=== PATIENT | male | born 1940 | race Caucasian/White ===

== ENCOUNTER 2018-04-09 15:09 | Outpatient (CLI) | payer MEDICARE ==
--- NOTE | 2018-04-09 17:41 | RAD ---
THREE VIEWS LEFT HAND 04/09/18 COMPARISON: None. HISTORY: Bilateral hand pain for many years. FINDINGS: Three views of the left hand shows no evidence of acute fracture or dislocation. There is severe join t space narrowing and osteophyte formation involving the interphalangeal joints of the fingers consis tent with osteoarthritis. 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 POS: [facility]
--- NOTE | 2018-04-09 17:44 | RAD ---
THREE VIEWS OF THE RIGHT HAND: 04/09/18 COMPARISON: None. HISTORY: Bilateral hand pain for many years. FINDINGS: Three views of the right hand shows no evidence of acute fracture or dislocation. There is joint spac e narrowing and osteophyte formation surrounding the interphalangeal joints of the fingers. Surroundi ng soft tissue swelling is seen. IMPRESSION: Severe right hand osteoarthritis without acute osseous abnormality. POS: [facility]
== END 2018-04-09 15:10 | disposition home or self-care (01) ==
LOC: SCSRAD 15:09
PROVIDERS: ATTEND Family Medicine
DX: M79.641 Pain in right hand (principal); M79.642 Pain in left hand; M19.042 Primary osteoarthritis, left hand; M19.041 Primary osteoarthritis, right hand

== ENCOUNTER 2018-05-17 07:20 | Outpatient (CLI) | payer MEDICARE ==
--- NOTE | 2018-05-17 10:24 | CT ---
CT ARTHROGRAM OF THE RIGHT SHOULDER: INDICATION: History of right shoulder pain and concern for tear of the rotator cuff. FINDINGS: No full-thickness rotator cuff tear is evident. The biceps tendon is located. No definite full-thic kness labral tear is grossly evident. The visualized aspects of the inferior glenohumeral labral lig amentous complex appears within normal limits. The glenohumeral articular surface appears preserved. No abnormal contrast is seen within the subacromial subdeltoid bursa. There is mild AC joint osteo arthrosis. No muscular atrophy is evident. No enlarged lymph nodes are present. No destructive oss eous lesion is seen involving the proximal humerus or scapula. The visualized right lung demonstrate s interstitial fibrotic change of the right upper lobe with some paraseptal emphysema seen within the right upper lobe. IMPRESSION: 1. No evidence of full-thickness rotator cuff tear. 2. Mild acromioclavicular joint osteoarthrosis. 3. No aggressive destructive lytic lesion seen involving the right shoulder girdle. 4. Emphysematous change of the right lung. POS: [facility]
--- NOTE | 2018-05-17 11:06 | RAD ---
RIGHT SHOULDER ARTHROGRAM: Date: 05-17-18 Comparison: None. History: Evaluate rotator cuff tear, shoulder pain. FINDINGS: Informed consent was obtained prior to the procedure. Pre procedural three view football scout radiographs demonstrate old lateral right sided rib fractures. There is mild degenerative change of the right acromioclavicular joint with no acute fracture or dislocatio n seen. Skin overlying the right shoulder joint was prepped and draped in normal sterile fashion and anesthet ized with 1% buffered Lidocaine. With intermittent fluoroscopic guidance, a 22 gauge spinal needle was advanced into the right shoulde r joint an intraarticular location is confirmed with injection of small volume Lidocaine. Subsequentl y, 9-10 cc of a mixture containing iodinated contrast media was injected into the right shoulder join t. Needle was removed. Patient tolerated the procedure well. IMPRESSION: Successful right shoulder arthrogram as detailed above. POS: [facility]
== END 2018-05-17 07:21 | disposition home or self-care (01) ==
LOC: RAD 07:20
PROVIDERS: ATTEND Orthopaedic Surgery Hand Surgery
DX: M75.101 Unspecified rotator cuff tear or rupture of right shoulder, not specified as traumatic (principal); M89.9 Disorder of bone, unspecified; M19.011 Primary osteoarthritis, right shoulder
CPT/HCPCS: 23350

== ENCOUNTER 2018-06-06 13:27 | Emergency (ER) | payer MEDICARE ==
[2018-06-06 14:13] LABS: #Basophils 0.1 thou/uL (0.0-0.2); #Eosinphils 0.3 thou/uL (0.0-0.7); #Lymphocytes 1.9 thou/uL (1.20-3.40); #Monocytes 0.7 thou/uL (0.11-0.59); #Neutrophils 4.2 thou/uL (1.40-6.50); %Basophils 1.2 % (0.0-1.0); %Eosinophils 4.3 % (0.0-10.0); %Lymphocytes 26.1 % (21.0-51.0); %Monocytes 9.7 % (0.0-10.0); %Neutrophils 58.7 % (42.0-75.0); Hemoglobin 14.3 g/dL (14.0-18.0); Mean Corpuscular HGB CONC 33.3 g/dL (32.0-36.0); Mean Corpuscular Hemoglobin 29.6 pg (27.0-31.0); Mean Corpuscular Volume 88.8 fL (78.0-98.0); Mean Platelet Volume 6.9 fL (7.4-10.4); Platelet Count 138 thou/uL (130-400); RBC Distribution Width 11.8 % (11.5-14.5); Red Blood Cell (RBC) Count 4.83 mill/uL (4.70-6.10); White Blood Cell (WBC) Count 7.2 thou/uL (4.8-10.8)
[2018-06-06 14:30] LABS: ALT (SGPT) 17 U/L (8-55); AST (SGOT) 17 U/L (5-34); Albumin 3.7 g/dL (3.4-4.8); Alkaline Phosphatase 95 U/L (40-150); Anion Gap 13 mmol/L (10-20); BUN (Urea Nitrogen) 14 mg/dL (8.4-25.7); Bilirubin, Total 0.5 mg/dL (0.2-1.2); Calc. Creatinine Clearance 0 mL/min (70-130); Calcium 8.9 mg/dL (7.8-10.44); Carbon Dioxide 23 mmol/L (23-31); Chloride 108 mmol/L (98-107); Estimated GFR-MDRD 84; Globulin 2.8 g/dL (2.4-3.5); Glucose 97 mg/dL (83-110); Potassium 4.2 mmol/L (3.5-5.1); Protein, Total 6.5 g/dL (5.8-8.1); Sodium 140 mmol/L (136-145)
--- NOTE | 2018-06-06 14:35 | RAD ---
PA AND LATERAL VIEWS CHEST: Date: 06/06/18 HISTORY: Cough. FINDINGS: The heart size is normal. The lungs are expanded without lobar consolidation, pneumothoraces, or pleu ral effusions. There are degenerative changes in the spine. IMPRESSION: No radiographic evidence of acute cardiopulmonary process. POS: [facility]
== END 2018-06-06 14:51 | disposition home or self-care (01) ==
LOC: SCSER 13:27
DX: J06.9 Acute upper respiratory infection, unspecified (principal); M19.90 Unspecified osteoarthritis, unspecified site; Z87.891 Personal history of nicotine dependence; Z79.899 Other long term (current) drug therapy
CPT/HCPCS: 36415; 71046; 80053; 85025; 87804

== ENCOUNTER 2020-02-27 17:14 | Observation (INO) | payer MEDICARE, OTHER ==
[2020-02-27 17:48] LABS: #Eosinphils 0.7 thou/uL (0.0-0.7); #Lymphocytes 1.2 thou/uL (1.20-3.40); #Monocytes 0.7 thou/uL (0.11-0.59); #Neutrophils 4.2 thou/uL (1.40-6.50); %Basophils 0.4 % (0.0-1.0); %Eosinophils 10.5 % (0.0-10.0); %Monocytes 9.7 % (0.0-10.0); %Neutrophils 62.4 % (42.0-75.0); Hemoglobin 14.9 g/dL (14.0-18.0); Mean Corpuscular HGB CONC 34.5 g/dL (32.0-36.0); Mean Corpuscular Hemoglobin 31.3 pg (27.0-31.0); Mean Corpuscular Volume 90.7 fL (78.0-98.0); Mean Platelet Volume 9.2 fL (7.4-10.4); Platelet Count 149 thou/uL (130-400); RBC Distribution Width 15.3 % (11.5-14.5); Red Blood Cell (RBC) Count 4.75 mill/uL (4.70-6.10); White Blood Cell (WBC) Count 6.8 thou/uL (4.8-10.8)
[2020-02-27 17:57] LABS: Prothrombin Time 13.4 sec (12.0-14.7)
[2020-02-27 17:58] LABS: PTT 32.5 sec (22.9-36.1)
[2020-02-27 17:59] LABS: D-Dimer Test 2.27 *mcg/mL (0.27-0.43)
--- NOTE | 2020-02-27 18:04 | RAD ---
Portable frontal chest radiograph: 02/27/2020 COMPARISON: 06/22/2015 HISTORY: Weakness, shortness of breath FINDINGS: Heart and mediastinal contours are stable. No pneumothorax or pleural fluid. No focal conso lidation or alveolar edema. Mild increased linear interstitial density noted. IMPRESSION: No acute findings.
[2020-02-27 18:05] LABS: ALT (SGPT) 25 U/L (8-55); AST (SGOT) 16 U/L (5-34); Albumin 3.9 g/dL (3.4-4.8); Alkaline Phosphatase 106 U/L (40-110); Anion Gap 14 mmol/L (10-20); BUN (Urea Nitrogen) 12 mg/dL (8.4-25.7); Bilirubin, Total 0.8 mg/dL (0.2-1.2); CK (CPK) 42 U/L (30-200); Calc. Creatinine Clearance 0 mL/min (70-130); Calcium 9.2 mg/dL (7.8-10.44); Carbon Dioxide 23 mmol/L (23-31); Chloride 104 mmol/L (98-107); Estimated GFR-MDRD 58; Globulin 2.9 g/dL (2.4-3.5); Glucose 134 mg/dL (83-110); Lipase 32 U/L (8-78); Magnesium 2.2 mg/dL (1.6-2.6); Potassium 4.2 mmol/L (3.5-5.1); Protein, Total 6.8 g/dL (5.8-8.1); Sodium 137 mmol/L (136-145)
[2020-02-27 19:16] LABS: SARS-CoV-2 NAA Rapid Test Not Detected (NotDetected)
--- NOTE | 2020-02-27 20:01 | CT ---
CT PULMONARY ANGIOGRAM WITH IV CONTRAST AND 3D POSTPROCESSING: Date: 02/27/2020 HISTORY: 79-year-old male who is under treatment for Hodgkin's lymphoma. Is on cycle 3 of 6 of the CHOP plus a ntibody therapy. Patient complains of progressively worsening shortness of breath. FINDINGS: There is good contrast opacification of the pulmonary arterial vasculature without filling defects to suggest pulmonary embolism. The thoracic aorta is well opacified without aneurysm or dissection. Vas cular calcifications are present. A tiny pericardial effusion is noted. No pneumothoraces, lobar cons olidation, or pleural effusions are identified. There are patchy reticulonodular infiltrates in the l bong graham bilaterally. There are degenerative changes in the spine. Upper abdominal tomograms demons trate a small hiatal hernia. IMPRESSION: No CT evidence of pulmonary embolism. POS: [facility]
[2020-02-27] MEDS ORDERED: cefTRIAXone\\ROCEPHIN 2 GM VIAL ONE (20:16)
[2020-02-27] MEDS ORDERED: Azithromycin 500 MG VIAL ONE (20:16)
[2020-02-27 20:40] LABS: Lactic Acid 1.3 mmol/L (0.5-2.2)
[2020-02-27] MEDS ORDERED: Acetaminophen 500 MG TAB ONE (21:19)
[2020-02-27 22:19] LABS: Troponin I 0.015 ng/mL (< 0.028)
[2020-02-27 23:08] VITALS: BMI 23.3
[2020-02-28 00:03] LABS: Bacteria/HPF None Seen HPF (None Seen); Bilirubin Negative (Negative); Blood, Urine Negative (Negative); Clarity Clear (Clear); Glucose, Urine (Dipstick) 30 mg/dL (Negative); Ketone, Urine Negative (Negative); Leukocyte Negative Leu/uL (Negative); Nitrite Negative (Negative); Protein, Urine (Dipstick) 30 mg/dL (Neg-Trace); RBC/HPF 0-3 HPF (0-3); Squamous Epithelial 0-3 HPF (0-3); Urobilinogen Normal mg/dL (Less than 2); WBC/HPF 0-3 HPF (0-3); pH, Urine 5.5 (5.0-9.0)
[2020-02-28 00:06] LABS: Specific Gravity, Urine Greater than 1.060 (1.002-1.036)
[2020-02-28 01:13] LABS: Troponin I Less than 0.010 ng/mL (< 0.028)
[2020-02-28] MEDS: Sodium Chloride 0.9% 1,000 ML IV SCH ×2 (02:44→16:43)
[2020-02-28 05:02] LABS: Anion Gap 12 mmol/L (10-20); BUN (Urea Nitrogen) 12 mg/dL (8.4-25.7); Calc. Creatinine Clearance 66 mL/min (70-130); Calcium 8.2 mg/dL (7.8-10.44); Carbon Dioxide 19 mmol/L (23-31); Chloride 110 mmol/L (98-107); Estimated GFR-MDRD 69; Glucose 103 mg/dL (83-110); Magnesium 2.1 mg/dL (1.6-2.6); Potassium 3.9 mmol/L (3.5-5.1); Sodium 137 mmol/L (136-145)
--- NOTE | 2020-02-28 06:36 | HP ---
REASON FOR ADMISSION: Shortness of breath. HISTORY OF PRESENT ILLNESS: This is an 79-year-old male patient who is known to have non-Hodgkin lymphoma receiving chemotherapy consistent of CHOP regimen and Revlimid. Also he did receive radiation therapy in the past. He follows with Oncology at [facility] in [place]. He presents to our emergency room complaining of dizziness, decreased appetite, diarrhea, cramping of the upper extremities and lower extremities. These symptoms started couple of weeks ago. Also, he did add that he has been short of breath on exertion, his shortness of breath is relieved with rest. He denies orthopnea. He does report a dry cough. He denies any chest pain. In the emergency room, a CAT scan of the chest was done that showed patchy infiltrates bilaterally, but no PE. ER physician did contact the oncologist in [facility], decision was to admit him for further workup. Currently, the patient is on telemetry, appears to be very comfortable, in no acute distress. PAST MEDICAL HISTORY: Non-Hodgkin lymphoma with involvement of the GI tract, also lungs. ALLERGIES: NO NOTE OF ANY DRUG ALLERGY. SOCIAL HISTORY: He quit smoking a while back. He drinks alcohol occasionally. FAMILY HISTORY: Reviewed found to be noncontributory. REVIEW OF SYSTEMS: All systems reviewed except the above mentioned, found to be negative. PHYSICAL EXAMINATION: GENERAL: Awake, alert, oriented, does not appear in distress. VITAL SIGNS: His blood pressure is 106/58, his heart rate is 100 and saturating 96% on room air, respiratory rate 22, temperature is 97.6. HEAD: Nontraumatic, normocephalic. Pupils equal, reactive. Extraocular movements are intact. Nonicteric sclerae. Well injected conjunctivae. Oral mucosa normal. Nasal mucosa normal. NECK: Supple. No adenopathy. No murmur. Thyroid is not palpable. Trachea is midline. No supraclavicular adenopathy S1, S2 regular. No murmur. No gallops. No friction rubs. No displacement of PMI. LUNGS: Clear to auscultation bilaterally. No wheezes, rhonchi, or crackles. ABDOMEN: Bowel sounds are positive. Nontender abdomen. No hepatosplenomegaly. No lower extremity edema. No cyanosis noted. NEUROLOGIC: Cranial nerves 2 through 12 within normal limits. Normal motor function. Normal sensory function. Normal reflexes. LABORATORY DATA: Blood work shows WBC of 6.8, hemoglobin 14.9, platelets of 149. INR 1, PTT 32.5. Sodium of 137, potassium 4.2, bicarb of 23, BUN of 12, creatinine 1.21, lactic acid of 2.3, recheck 1.3. Troponin initially 0.01. Repeat 0.015. COVID-19 negative. IMAGING: EKG shows normal sinus rhythm. changes. Prolonged QTc per my read. ASSESSMENT AND PLAN: This is an 79-year-old male patient who is presenting with shortness of breath. He is known to have non-Hodgkin lymphoma, has been on chemotherapy, also Revlimid, also radiation therapy. Cardiac: The patient will be admitted to telemetry. We will do an echocardiogram. Serial troponins and monitor his rhythm. We will check a magnesium level. Correct if needed. The patient did report diarrhea and decreased appetite. This could be side effect of Revlimid. We will stop his Revlimid. We will have him on IV fluids. Pulmonary: The patient does have shortness of breath. The etiology remains unclear. On CT scan, he does have some patchy infiltrates. We will have him on IV antibiotics for possible pneumonia. For DVT prophylaxis, Lovenox. I did discuss with him his code status, he wishes to be a full code. Job ID: [id number]
[2020-02-28] MEDS ORDERED: Azithromycin 200 MG/5 ML Oral Suspension PO SCH (08:00)
[2020-02-28] MEDS ORDERED: Aspirin 325 mg Enteric Coated Tablet PO SCH (09:00)
[2020-02-28] MEDS ORDERED: Enoxaparin Sodium 40 MG/0.4 ML SYRINGE SC SCH (09:00)
[2020-02-28 16:41] VITALS: BP 119/59; TEMP 98.7
[2020-02-28] MEDS ORDERED: cefTRIAXone\\ROCEPHIN 1 GM in Sodium Chloride 0.9% 100 ML IVPB SCH (20:00)
--- NOTE | 2020-02-28 23:32 | DIS ---
DATE OF ADMISSION: 02/27/2020 DATE OF DISCHARGE: 02/28/2020 DIAGNOSIS: Pneumonia Mr. Trinidad is an 79 yo male pmh of Non-Hodgkin lymphoma, s/p chemotherapy with CHOP and currently on Revlimid who was admitted due to a 1-week history of progressive shortness of breath. CT obtained in the emergency department showed patchy infiltrates bilaterally. There were some concerns the patient had regarding side effects of Revlimid could be the cause of his presentation. The patient was admitted and received an echo, which showed normal ejection fraction with some mild diastolic dysfunction. I spoke to Dr. García, destination coordinator/oncologist at [facility] who follows Mr. Trinidad's, and he did not believe presentation to be side effect and recommended outpatient treatment for pneumonia. He will have his office staff reach out to patient within the week to have the patient follow up in clinic for further evaluation of side effects of medications. PHYSICAL: General: patient resting comfortably in bed, on room air Cardio: regular rate and rhythm, no murmur. Chest: clear to auscultation bilaterally. Abdomen: soft, nondistended, and nontender. Extremities: no edema of the bilateral lower extremities. He was discharged home in stable condition. F/u with destination coordinator/oncologist within the week and PCP within the week. Activity as tolerated. Heart-healthy diet. The patient was discharged with levofloxacin 500 mg, take 1 tablet by mouth daily for 5 days to treat pneumonia. All other home medications were continued. Return precautions were given. The total discharge time took greater than 30 minutes for the patient. Job ID: [id number] [facility]
--- NOTE | 2020-03-03 12:21 | EKG ---
Test Reason : WEAKNESS Blood Pressure : / mmHG Vent. Rate : 089 BPM Atrial Rate : 089 BPM P-R Int : 170 ms QRS Dur : 080 ms QT Int : 400 ms P-R-T Axes : 044 -24 051 degrees QTc Int : 486 ms Sinus rhythm with Premature atrial complexes Prolonged QT Abnormal ECG Confirmed by SOTERO BAY ([id number]), material expeditor JT MEYER ([id number]) on 03/03/2020 12:21:25 PM Referred By: Confirmed By:SOTERO BAY
== END 2020-02-28 17:30 | disposition home or self-care (01) ==
LOC: ERS 17:14 → 2NO 21:13 → INTOOBSV 21:13
PROVIDERS: ADMIT Internal Medicine; ATTEND Internal Medicine
DX: J18.9 Pneumonia, unspecified organism (principal); R25.2 Cramp and spasm; C85.93 Non-Hodgkin lymphoma, unspecified, intra-abdominal lymph nodes; C85.99 Non-Hodgkin lymphoma, unspecified, extranodal and solid organ sites; M19.90 Unspecified osteoarthritis, unspecified site; R63.0 Anorexia; Z68.23 Body mass index [BMI] 23.0-23.9, adult; Z87.891 Personal history of nicotine dependence; Z79.899 Other long term (current) drug therapy; Z20.828 Contact with and (suspected) exposure to other viral communicable diseases
CPT/HCPCS: 71045; 71275; 80048; 82550; 83605; 83690; 83735 ×2; 83880; 84484 ×3; 85379; 85610; 85730; 87040; 87804 ×2; 93005; 93306; 96361; 96365; 96367; 96372; 99285; G0378; U0002; 36415; 80053; 81003; 81015; 84443; 85025; J0456; J0696; J1650

== ENCOUNTER 2020-11-14 21:23 | Inpatient (IN) | payer MEDICARE ==
[~2020-11-14 21:23] MED LIST: Iopamidol-370 76% 500 ML 1 ML ONE
[2020-11-14 21:51] LABS: #Lymphocytes 2.2 thou/uL (1.20-3.40); #Monocytes 0.8 thou/uL (0.11-0.59); #Neutrophils 4.6 thou/uL (1.40-6.50); %Basophils 0.2 % (0.0-1.0); %Lymphocytes 28.8 % (21.0-51.0); %Monocytes 10.7 % (0.0-10.0); %Neutrophils 60.2 % (42.0-75.0); Hemoglobin 16.9 g/dL (14.0-18.0); Mean Corpuscular HGB CONC 33.8 g/dL (32.0-36.0); Mean Corpuscular Hemoglobin 30.6 pg (27.0-31.0); Mean Corpuscular Volume 90.4 fL (78.0-98.0); Mean Platelet Volume 8.2 fL (7.4-10.4); Platelet Count 138 thou/uL (130-400); RBC Distribution Width 12.8 % (11.5-14.5); Red Blood Cell (RBC) Count 5.52 mill/uL (4.70-6.10); White Blood Cell (WBC) Count 7.7 thou/uL (4.8-10.8)
[2020-11-14] MEDS ORDERED: cefTRIAXone\\ROCEPHIN 2 GM VIAL ONE (21:57)
[2020-11-14 22:16] LABS: ALT (SGPT) 37 U/L (8-55); AST (SGOT) 44 U/L (5-34); Albumin 4.1 g/dL (3.4-4.8); Alkaline Phosphatase 88 U/L (40-110); Anion Gap 17 mmol/L (10-20); BUN (Urea Nitrogen) 22 mg/dL (8.4-25.7); Bilirubin, Total 0.7 mg/dL (0.2-1.2); Calc. Creatinine Clearance 0 mL/min (70-130); Carbon Dioxide 23 mmol/L (23-31); Chloride 101 mmol/L (98-107); Globulin 3.1 g/dL (2.4-3.5); Glucose 117 mg/dL (83-110); Potassium 3.7 mmol/L (3.5-5.1); Protein, Total 7.2 g/dL (5.8-8.1); Sodium 137 mmol/L (136-145)
[2020-11-14 22:30] LABS: CK (CPK) 233 U/L (30-200); Lipase 57 U/L (8-78)
[2020-11-14 22:38] LABS: CKMB 3.2 ng/mL (0-6.6)
[2020-11-14] MEDS ORDERED: Azithromycin 500 MG VIAL ONE (22:41)
[2020-11-14 22:44] LABS: SARS-CoV-2 NAA Rapid Test DETECTED (NotDetected)
[2020-11-14] MEDS ORDERED: Ibuprofen 800 MG TAB ONE (23:09)
[2020-11-14] MEDS ORDERED: Acetaminophen 500 MG TAB ONE (23:09)
[2020-11-15] MEDS ORDERED: Enoxaparin Sodium 80 MG/0.8 ML SYRINGE ONE (00:15)
[2020-11-15] MEDS ORDERED: Aspirin Chewable 81 MG TAB ONE (00:15)
[2020-11-15 01:26] LABS: Lactic Acid 1.5 mmol/L (0.5-2.2)
[2020-11-15 01:41] LABS: Troponin I 0.023 ng/mL (< 0.028)
[2020-11-15] MEDS ORDERED: methylPREDNISolone Sod Succ/PF 125 MG in Sodium Chloride 0.9% 250 ML 250 ML IVPB SCH (02:15)
[2020-11-15] MEDS ORDERED: Sodium Chloride 0.9% 1,000 ML IV SCH ×2 (02:15→08:45)
[2020-11-15] MEDS ORDERED: Colchicine 0.6 MG TAB PO SCH (09:00)
[2020-11-15] MEDS ORDERED: REMDESIVIR 200 MG in Sodium Chloride 0.9% 250 ML 210 ML IV SCH (09:15)
[2020-11-15] MEDS ORDERED: guaiFENesin/Codeine 200 mg/20 mg 10 ml Cup PO PRN (09:40)
[2020-11-15] MEDS: Azithromycin 500 MG in Sodium Chloride 0.9% 250 ML 250 ML IVPB SCH (10:51)
[2020-11-15] MEDS: Ondansetron PF 4 MG/2 ML Vial IVP PRN (18:26)
[2020-11-15] MEDS ORDERED: Furosemide 20 MG/2 ML VIAL SLOW IVP SCH (20:45)
[2020-11-15] MEDS: Enoxaparin Sodium 80 MG/0.8 ML SYRINGE SC SCH (20:45)
[2020-11-16 04:53] LABS: Hemoglobin 14.6 g/dL (14.0-18.0); Mean Corpuscular HGB CONC 32.6 g/dL (32.0-36.0); Mean Corpuscular Hemoglobin 29.8 pg (27.0-31.0); Mean Corpuscular Volume 91.5 fL (78.0-98.0); Mean Platelet Volume 8.4 fL (7.4-10.4); Platelet Count 121 thou/uL (130-400); RBC Distribution Width 12.9 % (11.5-14.5); Red Blood Cell (RBC) Count 4.92 mill/uL (4.70-6.10); White Blood Cell (WBC) Count 6.1 thou/uL (4.8-10.8)
[2020-11-16 05:18] LABS: Anion Gap 12 mmol/L (10-20); BUN (Urea Nitrogen) 22 mg/dL (8.4-25.7); CK (CPK) 171 U/L (30-200); CRP (Inflammatory) 4.57 mg/dL (= or < 0.5); Calc. Creatinine Clearance 64 mL/min (70-130); Calcium 8.1 mg/dL (7.8-10.44); Carbon Dioxide 24 mmol/L (23-31); Chloride 110 mmol/L (98-107); Glucose 133 mg/dL (83-110); Potassium 3.5 mmol/L (3.5-5.1); Sodium 142 mmol/L (136-145)
[2020-11-16 06:13] LABS: Band 10 % (5-11); Lymphocytes 17 % (21-51); MDiff Complete? YES; Monocytes 8 % (0-10); Neutrophil 65 % (42-75)
[2020-11-16] MEDS: Enoxaparin Sodium 80 MG/0.8 ML SYRINGE SC SCH (08:02)
[2020-11-16] MEDS ORDERED: Dexamethasone 6 MG in Sodium Chloride 0.9% 50 ML IVPB SCH (09:00)
[2020-11-16] MEDS: Ondansetron PF 4 MG/2 ML Vial IVP PRN (09:22)
[2020-11-16] MEDS: Azithromycin 500 MG in Sodium Chloride 0.9% 250 ML 250 ML IVPB SCH (10:29)
[2020-11-16] MEDS: REMDESIVIR 100 MG in Sodium Chloride 0.9% 250 ML 230 ML IV SCH (11:17)
[2020-11-16] MEDS ORDERED: methylPREDNISolone Sod Succ/PF 125 MG/2 ML VIAL IVP SCH (16:45)
[2020-11-16] MEDS ORDERED: ADMIXTURE FEE IVPB SCH (17:00)
[2020-11-16] MEDS ORDERED: METHYLPREDNISOLONE SOD SUCC IVPB SCH (17:00)
[2020-11-16] MEDS ORDERED: [UNRECOGNIZED DRUG - OTHER] IVPB SCH (17:00)
[2020-11-16] MEDS: Ivermectin 3 MG TAB PO SCH (17:13)
[2020-11-16] MEDS: METHYLPREDNISOLONE SOD SUCC IVPB SCH (18:10)
[2020-11-16] MEDS: ADMIXTURE FEE IVPB SCH (18:10)
[2020-11-16] MEDS: [UNRECOGNIZED DRUG - OTHER] IVPB SCH (18:10)
[2020-11-16] MEDS: Cholecalciferol 1,000 UNITS (25 MCG) TAB PO SCH (20:44)
[2020-11-16] MEDS: Colchicine 0.6 MG TAB PO SCH (20:44)
[2020-11-16] MEDS: Melatonin 3 MG TAB PO SCH (20:45)
[2020-11-16] MEDS: Ascorbic Acid 500 mg Chewable Tablet PO SCH (20:45)
[2020-11-16] MEDS: Enoxaparin Sodium 40 MG/0.4 ML SYRINGE SC SCH (20:45)
[2020-11-17 03:40] LABS: #Lymphocytes 1.2 thou/uL (1.20-3.40); #Monocytes 0.4 thou/uL (0.11-0.59); #Neutrophils 5.5 thou/uL (1.40-6.50); %Eosinophils 0.2 % (0.0-10.0); %Lymphocytes 16.6 % (21.0-51.0); %Monocytes 4.9 % (0.0-10.0); %Neutrophils 78.2 % (42.0-75.0); Hemoglobin 14.3 g/dL (14.0-18.0); Mean Corpuscular HGB CONC 34.4 g/dL (32.0-36.0); Mean Corpuscular Volume 93.1 fL (78.0-98.0); Mean Platelet Volume 8.3 fL (7.4-10.4); Platelet Count 113 thou/uL (130-400); RBC Distribution Width 12.8 % (11.5-14.5); Red Blood Cell (RBC) Count 4.49 mill/uL (4.70-6.10); White Blood Cell (WBC) Count 7.1 thou/uL (4.8-10.8)
[2020-11-17 04:04] LABS: Anion Gap 12 mmol/L (10-20); BUN (Urea Nitrogen) 24 mg/dL (8.4-25.7); CRP (Inflammatory) 1.93 mg/dL (= or < 0.5); Calc. Creatinine Clearance 68 mL/min (70-130); Carbon Dioxide 23 mmol/L (23-31); Chloride 110 mmol/L (98-107); Glucose 163 mg/dL (83-110); Potassium 3.6 mmol/L (3.5-5.1); Sodium 141 mmol/L (136-145)
[2020-11-17] MEDS: Ondansetron PF 4 MG/2 ML Vial IVP PRN (05:37)
[2020-11-17] MEDS: Colchicine 0.6 MG TAB PO SCH ×2 (08:39→20:01)
[2020-11-17] MEDS: Azithromycin 500 MG in Sodium Chloride 0.9% 250 ML 250 ML IVPB SCH (08:39)
[2020-11-17] MEDS: Ascorbic Acid 500 mg Chewable Tablet PO SCH ×2 (08:39→20:00)
[2020-11-17] MEDS: Zinc Sulfate 220 MG CAP PO SCH (08:39)
[2020-11-17] MEDS: Thiamine 100 MG TAB PO SCH (08:39)
[2020-11-17] MEDS: REMDESIVIR 100 MG in Sodium Chloride 0.9% 250 ML 230 ML IV SCH (09:47)
[2020-11-17] MEDS ORDERED: Bisacodyl 5 MG TAB PO PRN (10:07)
[2020-11-17] MEDS ORDERED: Calcium Carbonate 500 MG ChewTAB PO PRN (10:07)
[2020-11-17] MEDS ORDERED: Cepastat Lozenges 1 LOZ PO PRN (10:07)
[2020-11-17] MEDS ORDERED: GUAIFENESIN SF SOLN 200 MG/10 ML UDCUP PO PRN (10:07)
[2020-11-17] MEDS ORDERED: Sodium Chloride 0.65% Nasal 44 ML BOT EA NARE PRN (10:07)
[2020-11-17] MEDS ORDERED: Loratadine 10 MG TAB PO PRN (10:07)
[2020-11-17] MEDS ORDERED: hydrALAZINE 20 MG/ML VIAL SLOW IVP PRN (10:07)
[2020-11-17] MEDS ORDERED: Acetaminophen 325 MG TAB PO PRN (10:08)
[2020-11-17] MEDS: Ivermectin 3 MG TAB PO SCH (17:00)
[2020-11-17] MEDS: ADMIXTURE FEE IVPB SCH (17:01)
[2020-11-17] MEDS: [UNRECOGNIZED DRUG - OTHER] IVPB SCH (17:01)
[2020-11-17] MEDS: METHYLPREDNISOLONE SOD SUCC IVPB SCH (17:01)
[2020-11-17] MEDS: Enoxaparin Sodium 40 MG/0.4 ML SYRINGE SC SCH (20:00)
[2020-11-17] MEDS: Benzonatate 100 MG CAP PO PRN (20:01)
[2020-11-17] MEDS: Melatonin 3 MG TAB PO SCH (20:01)
[2020-11-17] MEDS: Cholecalciferol 1,000 UNITS (25 MCG) TAB PO SCH (20:01)
[2020-11-17] MEDS: Sulfameth/Trimethoprim DS 800-160mg TAB PO SCH (20:01)
[2020-11-18 03:59] LABS: #Lymphocytes 0.9 thou/uL (1.20-3.40); #Monocytes 0.5 thou/uL (0.11-0.59); #Neutrophils 6.8 thou/uL (1.40-6.50); %Basophils 0.1 % (0.0-1.0); %Lymphocytes 10.5 % (21.0-51.0); %Monocytes 6.1 % (0.0-10.0); %Neutrophils 83.3 % (42.0-75.0); Mean Corpuscular HGB CONC 35.4 g/dL (32.0-36.0); Mean Corpuscular Hemoglobin 32.6 pg (27.0-31.0); Mean Corpuscular Volume 92.1 fL (78.0-98.0); Mean Platelet Volume 8.7 fL (7.4-10.4); Platelet Count 106 thou/uL (130-400); RBC Distribution Width 12.6 % (11.5-14.5); Red Blood Cell (RBC) Count 4.29 mill/uL (4.70-6.10); White Blood Cell (WBC) Count 8.1 thou/uL (4.8-10.8)
[2020-11-18] MEDS: Benzonatate 100 MG CAP PO PRN ×2 (04:02→21:14)
[2020-11-18 04:06] LABS: Anion Gap 10 mmol/L (10-20); BUN (Urea Nitrogen) 21 mg/dL (8.4-25.7); CRP (Inflammatory) 0.98 mg/dL (= or < 0.5); Calc. Creatinine Clearance 79 mL/min (70-130); Calcium 7.7 mg/dL (7.8-10.44); Carbon Dioxide 23 mmol/L (23-31); Chloride 112 mmol/L (98-107); Glucose 153 mg/dL (83-110); Potassium 3.4 mmol/L (3.5-5.1); Sodium 142 mmol/L (136-145)
[2020-11-18] MEDS: Zinc Sulfate 220 MG CAP PO SCH (08:48)
[2020-11-18] MEDS: Sulfameth/Trimethoprim DS 800-160mg TAB PO SCH ×2 (08:48→21:14)
[2020-11-18] MEDS: Ascorbic Acid 500 mg Chewable Tablet PO SCH ×2 (08:48→21:14)
[2020-11-18] MEDS: Colchicine 0.6 MG TAB PO SCH ×2 (08:48→21:14)
[2020-11-18] MEDS: Thiamine 100 MG TAB PO SCH (08:48)
[2020-11-18] MEDS: REMDESIVIR 100 MG in Sodium Chloride 0.9% 250 ML 230 ML IV SCH (10:38)
[2020-11-18] MEDS: Loperamide HCl 2 MG CAP PO PRN (12:27)
[2020-11-18] MEDS: Ondansetron PF 4 MG/2 ML Vial IVP PRN (14:06)
[2020-11-18] MEDS ORDERED: Potassium Chloride 20 MEQ in Premix Bag 1 BAG IVPB SCH (17:45)
[2020-11-18] MEDS: Ivermectin 3 MG TAB PO SCH (17:46)
[2020-11-18] MEDS: METHYLPREDNISOLONE SOD SUCC IVPB SCH (17:47)
[2020-11-18] MEDS: [UNRECOGNIZED DRUG - OTHER] IVPB SCH (17:47)
[2020-11-18] MEDS: ADMIXTURE FEE IVPB SCH (17:47)
[2020-11-18] MEDS: Enoxaparin Sodium 40 MG/0.4 ML SYRINGE SC SCH (21:13)
[2020-11-18] MEDS: Cholecalciferol 1,000 UNITS (25 MCG) TAB PO SCH (21:14)
[2020-11-18] MEDS: Melatonin 3 MG TAB PO SCH (21:14)
[2020-11-19 03:51] LABS: #Lymphocytes 0.7 thou/uL (1.20-3.40); #Monocytes 0.5 thou/uL (0.11-0.59); #Neutrophils 6.4 thou/uL (1.40-6.50); %Eosinophils 0.1 % (0.0-10.0); %Lymphocytes 9.3 % (21.0-51.0); %Neutrophils 83.6 % (42.0-75.0); Mean Corpuscular HGB CONC 33.6 g/dL (32.0-36.0); Mean Corpuscular Hemoglobin 30.9 pg (27.0-31.0); Mean Corpuscular Volume 92.1 fL (78.0-98.0); Mean Platelet Volume 8.6 fL (7.4-10.4); Platelet Count 96 thou/uL (130-400); RBC Distribution Width 12.6 % (11.5-14.5); Red Blood Cell (RBC) Count 4.22 mill/uL (4.70-6.10); White Blood Cell (WBC) Count 7.7 thou/uL (4.8-10.8)
[2020-11-19 04:26] LABS: Anion Gap 8 mmol/L (10-20); BUN (Urea Nitrogen) 20 mg/dL (8.4-25.7); CRP (Inflammatory) 0.64 mg/dL (= or < 0.5); Calc. Creatinine Clearance 81 mL/min (70-130); Calcium 7.4 mg/dL (7.8-10.44); Carbon Dioxide 24 mmol/L (23-31); Chloride 112 mmol/L (98-107); Glucose 145 mg/dL (83-110); Potassium 3.3 mmol/L (3.5-5.1); Sodium 141 mmol/L (136-145)
[2020-11-19] MEDS: Enoxaparin Sodium 40 MG/0.4 ML SYRINGE SC SCH ×2 (08:19→21:42)
[2020-11-19] MEDS: Sulfameth/Trimethoprim DS 800-160mg TAB PO SCH ×2 (08:20→21:43)
[2020-11-19] MEDS: REMDESIVIR 100 MG in Sodium Chloride 0.9% 250 ML 230 ML IV SCH (08:20)
[2020-11-19] MEDS: Ascorbic Acid 500 mg Chewable Tablet PO SCH ×2 (08:20→21:41)
[2020-11-19] MEDS: Thiamine 100 MG TAB PO SCH (08:20)
[2020-11-19] MEDS: Zinc Sulfate 220 MG CAP PO SCH (08:20)
[2020-11-19] MEDS: Colchicine 0.6 MG TAB PO SCH ×2 (08:20→21:41)
[2020-11-19] MEDS ORDERED: Potassium Chloride 20 MEQ TAB PO SCH (09:15)
[2020-11-19] MEDS: Ivermectin 3 MG TAB PO SCH (19:26)
[2020-11-19] MEDS: METHYLPREDNISOLONE SOD SUCC IVPB SCH (20:00)
[2020-11-19] MEDS: ADMIXTURE FEE IVPB SCH (20:00)
[2020-11-19] MEDS: [UNRECOGNIZED DRUG - OTHER] IVPB SCH (20:00)
[2020-11-19] MEDS: Cholecalciferol 1,000 UNITS (25 MCG) TAB PO SCH ×2 (21:41→21:42)
[2020-11-19] MEDS: Melatonin 3 MG TAB PO SCH (21:42)
[2020-11-20] MEDS: Lorazepam 0.5 MG TAB PO PRN ×2 (03:44→13:44)
[2020-11-20 03:52] LABS: Anion Gap 11 mmol/L (10-20); BUN (Urea Nitrogen) 18 mg/dL (8.4-25.7); CRP (Inflammatory) Less than 0.50 mg/dL (= or < 0.5); Calc. Creatinine Clearance 87 mL/min (70-130); Calcium 7.4 mg/dL (7.8-10.44); Carbon Dioxide 23 mmol/L (23-31); Chloride 111 mmol/L (98-107); Glucose 134 mg/dL (83-110); Potassium 3.6 mmol/L (3.5-5.1); Sodium 141 mmol/L (136-145)
[2020-11-20 03:58] LABS: #Lymphocytes 0.6 thou/uL (1.20-3.40); #Monocytes 0.5 thou/uL (0.11-0.59); #Neutrophils 6.9 thou/uL (1.40-6.50); %Lymphocytes 7.9 % (21.0-51.0); %Monocytes 6.8 % (0.0-10.0); %Neutrophils 85.3 % (42.0-75.0); Hemoglobin 13.5 g/dL (14.0-18.0); Mean Corpuscular HGB CONC 35.3 g/dL (32.0-36.0); Mean Corpuscular Hemoglobin 32.3 pg (27.0-31.0); Mean Corpuscular Volume 91.3 fL (78.0-98.0); Mean Platelet Volume 8.7 fL (7.4-10.4); Platelet Count 99 thou/uL (130-400); RBC Distribution Width 12.6 % (11.5-14.5); Red Blood Cell (RBC) Count 4.18 mill/uL (4.70-6.10)
[2020-11-20] MEDS: Ascorbic Acid 500 mg Chewable Tablet PO SCH ×2 (08:57→20:55)
[2020-11-20] MEDS: Enoxaparin Sodium 40 MG/0.4 ML SYRINGE SC SCH ×2 (08:57→20:56)
[2020-11-20] MEDS: Colchicine 0.6 MG TAB PO SCH ×2 (08:58→20:55)
[2020-11-20] MEDS: Sulfameth/Trimethoprim DS 800-160mg TAB PO SCH ×2 (08:58→20:55)
[2020-11-20] MEDS: Zinc Sulfate 220 MG CAP PO SCH (08:58)
[2020-11-20] MEDS: Thiamine 100 MG TAB PO SCH (08:58)
[2020-11-20] MEDS: Ondansetron PF 4 MG/2 ML Vial IVP PRN (10:17)
[2020-11-20] MEDS: Loperamide HCl 2 MG CAP PO PRN (10:17)
[2020-11-20] MEDS: Ivermectin 3 MG TAB PO SCH (17:56)
[2020-11-20] MEDS: METHYLPREDNISOLONE SOD SUCC IVPB SCH (18:01)
[2020-11-20] MEDS: ADMIXTURE FEE IVPB SCH (18:01)
[2020-11-20] MEDS: [UNRECOGNIZED DRUG - OTHER] IVPB SCH (18:01)
[2020-11-20] MEDS ORDERED: Furosemide 20 MG/2 ML VIAL SLOW IVP SCH (18:45)
[2020-11-20] MEDS: Melatonin 3 MG TAB PO SCH (20:55)
[2020-11-21 04:11] LABS: #Lymphocytes 0.7 thou/uL (1.20-3.40); #Monocytes 0.5 thou/uL (0.11-0.59); #Neutrophils 5.9 thou/uL (1.40-6.50); %Basophils 0.2 % (0.0-1.0); %Eosinophils 0.1 % (0.0-10.0); %Lymphocytes 9.6 % (21.0-51.0); %Monocytes 6.7 % (0.0-10.0); %Neutrophils 83.4 % (42.0-75.0); Mean Corpuscular HGB CONC 35.6 g/dL (32.0-36.0); Mean Corpuscular Hemoglobin 32.8 pg (27.0-31.0); Mean Corpuscular Volume 92.1 fL (78.0-98.0); Mean Platelet Volume 8.5 fL (7.4-10.4); Platelet Count 100 thou/uL (130-400); RBC Distribution Width 12.8 % (11.5-14.5); Red Blood Cell (RBC) Count 4.28 mill/uL (4.70-6.10)
[2020-11-21 04:19] LABS: Anion Gap 11 mmol/L (10-20); BUN (Urea Nitrogen) 19 mg/dL (8.4-25.7); CRP (Inflammatory) 0.57 mg/dL (= or < 0.5); Calc. Creatinine Clearance 83 mL/min (70-130); Calcium 7.7 mg/dL (7.8-10.44); Carbon Dioxide 25 mmol/L (23-31); Chloride 109 mmol/L (98-107); Glucose 133 mg/dL (83-110); Sodium 141 mmol/L (136-145)
[2020-11-21] MEDS: Colchicine 0.6 MG TAB PO SCH ×2 (08:44→20:48)
[2020-11-21] MEDS: Thiamine 100 MG TAB PO SCH (08:44)
[2020-11-21] MEDS: Enoxaparin Sodium 40 MG/0.4 ML SYRINGE SC SCH ×2 (08:44→20:48)
[2020-11-21] MEDS: Ascorbic Acid 500 mg Chewable Tablet PO SCH ×2 (08:44→20:47)
[2020-11-21] MEDS: Zinc Sulfate 220 MG CAP PO SCH (08:44)
[2020-11-21] MEDS: Sulfameth/Trimethoprim DS 800-160mg TAB PO SCH (08:44)
[2020-11-21] MEDS: Piperacillin/Tazobactam 3.375 GM in Sodium Chloride 0.9% 100 ML IVPB SCH ×3 (08:44→20:48)
[2020-11-21] MEDS: Ivermectin 3 MG TAB PO SCH (17:30)
[2020-11-21] MEDS: METHYLPREDNISOLONE SOD SUCC IVPB SCH (17:30)
[2020-11-21] MEDS: [UNRECOGNIZED DRUG - OTHER] IVPB SCH (17:30)
[2020-11-21] MEDS: ADMIXTURE FEE IVPB SCH (17:30)
[2020-11-21] MEDS: Melatonin 3 MG TAB PO SCH (20:47)
[2020-11-21] MEDS: Cholecalciferol 1,000 UNITS (25 MCG) TAB PO SCH (20:48)
[2020-11-22] MEDS: Piperacillin/Tazobactam 3.375 GM in Sodium Chloride 0.9% 100 ML IVPB SCH ×4 (00:09→20:07)
[2020-11-22 04:20] LABS: #Lymphocytes 0.6 thou/uL (1.20-3.40); #Monocytes 0.4 thou/uL (0.11-0.59); #Neutrophils 5.8 thou/uL (1.40-6.50); %Basophils 0.1 % (0.0-1.0); %Lymphocytes 8.8 % (21.0-51.0); %Monocytes 5.9 % (0.0-10.0); %Neutrophils 85.2 % (42.0-75.0); Hemoglobin 14.2 g/dL (14.0-18.0); Mean Corpuscular HGB CONC 34.8 g/dL (32.0-36.0); Mean Corpuscular Hemoglobin 32.4 pg (27.0-31.0); Mean Corpuscular Volume 93.1 fL (78.0-98.0); Mean Platelet Volume 8.6 fL (7.4-10.4); Platelet Count 98 thou/uL (130-400); RBC Distribution Width 12.7 % (11.5-14.5); Red Blood Cell (RBC) Count 4.37 mill/uL (4.70-6.10); White Blood Cell (WBC) Count 6.8 thou/uL (4.8-10.8)
[2020-11-22 04:28] LABS: Anion Gap 9 mmol/L (10-20); BUN (Urea Nitrogen) 18 mg/dL (8.4-25.7); CRP (Inflammatory) Less than 0.50 mg/dL (= or < 0.5); Calc. Creatinine Clearance 84 mL/min (70-130); Calcium 7.4 mg/dL (7.8-10.44); Carbon Dioxide 26 mmol/L (23-31); Chloride 109 mmol/L (98-107); Glucose 143 mg/dL (83-110); Potassium 3.9 mmol/L (3.5-5.1); Sodium 140 mmol/L (136-145)
[2020-11-22] MEDS: Thiamine 100 MG TAB PO SCH (08:48)
[2020-11-22] MEDS: Ascorbic Acid 500 mg Chewable Tablet PO SCH ×2 (08:48→20:09)
[2020-11-22] MEDS: Zinc Sulfate 220 MG CAP PO SCH (08:48)
[2020-11-22] MEDS: Colchicine 0.6 MG TAB PO SCH ×2 (08:48→20:08)
[2020-11-22] MEDS: Enoxaparin Sodium 40 MG/0.4 ML SYRINGE SC SCH ×2 (08:49→20:08)
[2020-11-22] MEDS: Lorazepam 0.5 MG TAB PO PRN (10:15)
[2020-11-22] MEDS ORDERED: Lorazepam 2 MG/ML VIAL SLOW IVP PRN (12:20)
[2020-11-22] MEDS: METHYLPREDNISOLONE SOD SUCC IVPB SCH (18:02)
[2020-11-22] MEDS: Ivermectin 3 MG TAB PO SCH (18:02)
[2020-11-22] MEDS: [UNRECOGNIZED DRUG - OTHER] IVPB SCH (18:02)
[2020-11-22] MEDS: ADMIXTURE FEE IVPB SCH (18:02)
[2020-11-22] MEDS: Cholecalciferol 1,000 UNITS (25 MCG) TAB PO SCH (20:08)
[2020-11-22] MEDS: Melatonin 3 MG TAB PO SCH (20:09)
[2020-11-23] MEDS: Piperacillin/Tazobactam 3.375 GM in Sodium Chloride 0.9% 100 ML IVPB SCH ×4 (02:56→20:38)
[2020-11-23] MEDS: Lorazepam 0.5 MG TAB PO PRN ×4 (04:42→20:38)
[2020-11-23 04:50] LABS: #Lymphocytes 0.5 thou/uL (1.20-3.40); #Monocytes 0.4 thou/uL (0.11-0.59); #Neutrophils 7.6 thou/uL (1.40-6.50); %Eosinophils 0.2 % (0.0-10.0); %Lymphocytes 5.4 % (21.0-51.0); %Monocytes 4.9 % (0.0-10.0); %Neutrophils 89.6 % (42.0-75.0); Anion Gap 10 mmol/L (10-20); BUN (Urea Nitrogen) 16 mg/dL (8.4-25.7); CRP (Inflammatory) 0.66 mg/dL (= or < 0.5); Calc. Creatinine Clearance 89 mL/min (70-130); Calcium 7.6 mg/dL (7.8-10.44); Carbon Dioxide 24 mmol/L (23-31); Chloride 110 mmol/L (98-107); Glucose 126 mg/dL (83-110); Hemoglobin 14.2 g/dL (14.0-18.0); Mean Corpuscular HGB CONC 32.9 g/dL (32.0-36.0); Mean Corpuscular Hemoglobin 30.5 pg (27.0-31.0); Mean Corpuscular Volume 92.7 fL (78.0-98.0); Platelet Count 107 thou/uL (130-400); Potassium 4.1 mmol/L (3.5-5.1); RBC Distribution Width 12.9 % (11.5-14.5); Red Blood Cell (RBC) Count 4.67 mill/uL (4.70-6.10); Sodium 140 mmol/L (136-145); White Blood Cell (WBC) Count 8.5 thou/uL (4.8-10.8)
[2020-11-23] MEDS: Thiamine 100 MG TAB PO SCH (08:02)
[2020-11-23] MEDS: Ascorbic Acid 500 mg Chewable Tablet PO SCH ×2 (08:02→20:39)
[2020-11-23] MEDS: Zinc Sulfate 220 MG CAP PO SCH (08:03)
[2020-11-23] MEDS: Colchicine 0.6 MG TAB PO SCH ×2 (08:03→20:38)
[2020-11-23] MEDS: Sulfameth/Trimethoprim DS 800-160mg TAB PO SCH (08:03)
[2020-11-23] MEDS: Enoxaparin Sodium 40 MG/0.4 ML SYRINGE SC SCH ×2 (08:04→20:38)
[2020-11-23] MEDS: Benzonatate 100 MG CAP PO PRN (13:33)
[2020-11-23] MEDS: Ivermectin 3 MG TAB PO SCH (16:54)
[2020-11-23] MEDS: ADMIXTURE FEE IVPB SCH (18:40)
[2020-11-23] MEDS: [UNRECOGNIZED DRUG - OTHER] IVPB SCH (18:40)
[2020-11-23] MEDS: METHYLPREDNISOLONE SOD SUCC IVPB SCH (18:40)
[2020-11-23] MEDS: Ondansetron PF 4 MG/2 ML Vial IVP PRN (19:01)
[2020-11-23] MEDS: Melatonin 3 MG TAB PO SCH (20:38)
[2020-11-23] MEDS: Cholecalciferol 1,000 UNITS (25 MCG) TAB PO SCH (20:39)
[2020-11-24] MEDS: Piperacillin/Tazobactam 3.375 GM in Sodium Chloride 0.9% 100 ML IVPB SCH ×4 (03:28→20:34)
[2020-11-24 03:47] LABS: #Lymphocytes 0.4 thou/uL (1.20-3.40); #Monocytes 0.3 thou/uL (0.11-0.59); #Neutrophils 7.6 thou/uL (1.40-6.50); %Eosinophils 0.1 % (0.0-10.0); %Lymphocytes 4.2 % (21.0-51.0); %Monocytes 3.5 % (0.0-10.0); %Neutrophils 92.2 % (42.0-75.0); Hemoglobin 14.2 g/dL (14.0-18.0); Mean Corpuscular HGB CONC 34.1 g/dL (32.0-36.0); Mean Corpuscular Hemoglobin 31.6 pg (27.0-31.0); Mean Corpuscular Volume 92.8 fL (78.0-98.0); Mean Platelet Volume 8.7 fL (7.4-10.4); Platelet Count 84 thou/uL (130-400); RBC Distribution Width 13.1 % (11.5-14.5); Red Blood Cell (RBC) Count 4.48 mill/uL (4.70-6.10); White Blood Cell (WBC) Count 8.2 thou/uL (4.8-10.8)
[2020-11-24 04:02] LABS: Anion Gap 12 mmol/L (10-20); BUN (Urea Nitrogen) 15 mg/dL (8.4-25.7); CRP (Inflammatory) 1.81 mg/dL (= or < 0.5); Calc. Creatinine Clearance 89 mL/min (70-130); Calcium 7.3 mg/dL (7.8-10.44); Carbon Dioxide 23 mmol/L (23-31); Chloride 110 mmol/L (98-107); Glucose 144 mg/dL (83-110); Potassium 4.2 mmol/L (3.5-5.1); Sodium 141 mmol/L (136-145)
[2020-11-24] MEDS: Colchicine 0.6 MG TAB PO SCH ×2 (07:27→20:36)
[2020-11-24] MEDS: Ascorbic Acid 500 mg Chewable Tablet PO SCH ×2 (09:09→20:35)
[2020-11-24] MEDS: Lorazepam 0.5 MG TAB PO PRN (09:09)
[2020-11-24] MEDS: Zinc Sulfate 220 MG CAP PO SCH (09:10)
[2020-11-24] MEDS: Thiamine 100 MG TAB PO SCH (09:10)
[2020-11-24] MEDS: Enoxaparin Sodium 40 MG/0.4 ML SYRINGE SC SCH ×2 (09:11→20:36)
[2020-11-24] MEDS: Ivermectin 3 MG TAB PO SCH (15:06)
[2020-11-24] MEDS: ADMIXTURE FEE IVPB SCH (18:11)
[2020-11-24] MEDS: METHYLPREDNISOLONE SOD SUCC IVPB SCH (18:11)
[2020-11-24] MEDS: [UNRECOGNIZED DRUG - OTHER] IVPB SCH (18:11)
[2020-11-24] MEDS: Loperamide HCl 2 MG CAP PO PRN (20:35)
[2020-11-24] MEDS: Cholecalciferol 1,000 UNITS (25 MCG) TAB PO SCH (20:35)
[2020-11-24] MEDS: Melatonin 3 MG TAB PO SCH (20:35)
[2020-11-25] MEDS: Piperacillin/Tazobactam 3.375 GM in Sodium Chloride 0.9% 100 ML IVPB SCH ×2 (03:04→07:41)
[2020-11-25 03:51] LABS: #Lymphocytes 0.4 thou/uL (1.20-3.40); #Monocytes 0.3 thou/uL (0.11-0.59); #Neutrophils 9.6 thou/uL (1.40-6.50); %Basophils 0.2 % (0.0-1.0); %Eosinophils 0.1 % (0.0-10.0); %Lymphocytes 4.2 % (21.0-51.0); %Monocytes 3.2 % (0.0-10.0); %Neutrophils 92.4 % (42.0-75.0); Hemoglobin 14.5 g/dL (14.0-18.0); Mean Corpuscular HGB CONC 34.6 g/dL (32.0-36.0); Mean Corpuscular Hemoglobin 32.3 pg (27.0-31.0); Mean Corpuscular Volume 93.3 fL (78.0-98.0); Mean Platelet Volume 7.5 fL (7.4-10.4); Platelet Count 80 thou/uL (130-400); RBC Distribution Width 13.3 % (11.5-14.5); White Blood Cell (WBC) Count 10.4 thou/uL (4.8-10.8)
[2020-11-25 04:06] LABS: Anion Gap 10 mmol/L (10-20); BUN (Urea Nitrogen) 15 mg/dL (8.4-25.7); CRP (Inflammatory) 1.82 mg/dL (= or < 0.5); Calc. Creatinine Clearance 88 mL/min (70-130); Calcium 7.6 mg/dL (7.8-10.44); Carbon Dioxide 22 mmol/L (23-31); Chloride 112 mmol/L (98-107); Glucose 153 mg/dL (83-110); Potassium 3.8 mmol/L (3.5-5.1); Sodium 140 mmol/L (136-145)
[2020-11-25] MEDS: Zinc Sulfate 220 MG CAP PO SCH (07:41)
[2020-11-25] MEDS: Ascorbic Acid 500 mg Chewable Tablet PO SCH ×2 (07:41→19:59)
[2020-11-25] MEDS: Thiamine 100 MG TAB PO SCH (07:41)
[2020-11-25] MEDS: Colchicine 0.6 MG TAB PO SCH ×2 (07:42→20:01)
[2020-11-25] MEDS: Enoxaparin Sodium 40 MG/0.4 ML SYRINGE SC SCH ×2 (07:43→19:59)
[2020-11-25] MEDS ORDERED: Propofol 1,000 MG/100 ML VIAL IV ONE ×2 (09:55→10:49)
[2020-11-25] MEDS ORDERED: Lorazepam 2 MG/ML VIAL ONE (09:55)
[2020-11-25 10:14] LABS: Actual Bicarbonate (HCO3a) 22.1 mEq/L (22-28); Base Excess (BEa) -3.1 mEq/L (-2.0 to +3.0); CO2 Tension 40.4 mmHg (35.0-45.0); Calcium, Ionized (arterial) 1.13 mmol/L (1.12-1.30); Carboxyhemoglobin (COHb) 0.9 gm% (0.0-3.0); Hemoglobin (Hb) 15.5 g/dL (14.0-18.0); Potassium - ABG Lab 3.63 mmol/L (3.70-5.30); pH, Arterial 7.36 (7.35-7.45)
[2020-11-25 10:28] LABS: Puncture Site RRA
[2020-11-25] MEDS ORDERED: Electrolyte Replacement Protocol 1 EACH IVPB ONE (10:28)
[2020-11-25] MEDS ORDERED: Ventilator Sedation Protocol 1 EACH FS SCH (10:30)
[2020-11-25] MEDS ORDERED: Propofol 1,000 MG/100 ML VIAL IV PRN (10:32)
[2020-11-25] MEDS ORDERED: Fentanyl CADD 100 ML ONE (10:34)
[2020-11-25] MEDS ORDERED: Acetaminophen 650 MG/20.3 ML UDCUP PO PRN (11:16)
[2020-11-25] MEDS ORDERED: Electrolyte Replacement Protocol FS PRN (11:30)
[2020-11-25 11:32] LABS: Platelet Count 75 thou/uL (130-400)
[2020-11-25 11:43] LABS: Fibrinogen 451 mg/dL (253-463); INR-International Normal Ratio 1.1; PTT 22.9 sec (22.9-36.1)
[2020-11-25 11:44] LABS: D-Dimer Test 2.14 *mcg/mL (0.27-0.43)
[2020-11-25] MEDS ORDERED: DISCONTINUE PREVIOUS NARCOTIC PAIN MEDICATIONS AND BENZODIAZEPINES FS SCH (11:45)
[2020-11-25] MEDS ORDERED: Morphine 2 MG/ML VIAL SLOW IVP PRN (11:45)
[2020-11-25] MEDS ORDERED: fentaNYL Citrate/PF 2,000 MCG in Sodium Chloride 0.9% 60 ML IV SCH (11:45)
[2020-11-25] MEDS ORDERED: Fentanyl BOLUS 250 ML IVPB PRN (11:45)
[2020-11-25] MEDS ORDERED: Propofol BOLUS 1,000 MG/100 ML VIAL IV PRN (11:45)
[2020-11-25 11:47] LABS: FSP-Qualitative ABNORMAL (Normal); FSP-Semiquantitative >=5 & <20 mcg/mL (Less than 5)
[2020-11-25] MEDS ORDERED: Lidocaine 1% (PF) 30 ML VIAL ONE (11:51)
[2020-11-25] MEDS ORDERED: Rocuronium Bromide 10 MG/ML (10ML VIAL) IVP SCH (12:00)
[2020-11-25] MEDS ORDERED: Magnesium 2 GM/50 ML 2 GM in Premix Bag 1 BAG IVPB SCH (13:00)
[2020-11-25] MEDS: MEROPENEM 1 GM/50 ML 1 GM in Premix Bag 1 BAG IVPB SCH ×2 (13:05→19:29)
[2020-11-25] MEDS: Propofol 1,000 MG/100 ML VIAL IV PRN (13:06)
[2020-11-25 13:45] LABS: Glucose 129 mg/dL (83-110)
[2020-11-25] MEDS: Ivermectin 3 MG TAB PO SCH (16:00)
[2020-11-25] MEDS: [UNRECOGNIZED DRUG - OTHER] IVPB SCH (17:28)
[2020-11-25] MEDS: METHYLPREDNISOLONE SOD SUCC IVPB SCH (17:28)
[2020-11-25] MEDS: ADMIXTURE FEE IVPB SCH (17:28)
[2020-11-25] MEDS: Rocuronium Bromide 10 MG/ML (10ML VIAL) IVP PRN ×3 (18:20→23:46)
[2020-11-25 18:22] LABS: Glucose 125 mg/dL (83-110)
[2020-11-25] MEDS: Cholecalciferol 1,000 UNITS (25 MCG) TAB PO SCH (19:58)
[2020-11-25] MEDS: Lorazepam 2 MG/ML VIAL SLOW IVP PRN ×2 (19:58→22:18)
[2020-11-25] MEDS: Melatonin 3 MG TAB PO SCH (19:59)
[2020-11-25] MEDS: Famotidine 40 MG/5 ML Oral Suspension PER TUBE SCH (20:26)
[2020-11-25 21:27] LABS: Glucose 132 mg/dL (83-110)
[2020-11-26] MEDS ORDERED: Fentanyl CADD 100 ML ONE ×2 (01:46→18:12)
[2020-11-26] MEDS: Rocuronium Bromide 10 MG/ML (10ML VIAL) IVP PRN ×7 (02:27→19:56)
[2020-11-26] MEDS: Propofol 1,000 MG/100 ML VIAL IV PRN ×4 (02:27→20:21)
[2020-11-26] MEDS: Fentanyl CADD 100 ML IV SCH ×2 (02:28→18:26)
[2020-11-26] MEDS: MEROPENEM 1 GM/50 ML 1 GM in Premix Bag 1 BAG IVPB SCH ×3 (04:18→19:57)
[2020-11-26 05:35] LABS: ALT (SGPT) 38 U/L (8-55); AST (SGOT) 24 U/L (5-34); Albumin 2.4 g/dL (3.4-4.8); Alkaline Phosphatase 67 U/L (40-110); Anion Gap 11 mmol/L (10-20); BUN (Urea Nitrogen) 18 mg/dL (8.4-25.7); Bilirubin, Total 0.6 mg/dL (0.2-1.2); CRP (Inflammatory) 8.07 mg/dL (= or < 0.5); Calc. Creatinine Clearance 86 mL/min (70-130); Calcium 7.8 mg/dL (7.8-10.44); Carbon Dioxide 26 mmol/L (23-31); Chloride 109 mmol/L (98-107); Globulin 2.7 g/dL (2.4-3.5); Glucose 125 mg/dL (83-110); Potassium 4.8 mmol/L (3.5-5.1); Protein, Total 5.1 g/dL (5.8-8.1); Sodium 141 mmol/L (136-145)
[2020-11-26 05:37] LABS: Magnesium 2.7 mg/dL (1.6-2.6)
[2020-11-26 05:45] LABS: Hemoglobin 14.2 g/dL (14.0-18.0); Lymphocytes 1 % (21-51); MDiff Complete? YES; Mean Corpuscular HGB CONC 33.4 g/dL (32.0-36.0); Mean Corpuscular Hemoglobin 31.5 pg (27.0-31.0); Mean Corpuscular Volume 94.2 fL (78.0-98.0); Mean Platelet Volume 9.6 fL (7.4-10.4); Monocytes 2 % (0-10); Neutrophil 97 % (42-75); Platelet Count 71 thou/uL (130-400); Platelet Morphology Comment Appears Decreased; RBC Distribution Width 13.6 % (11.5-14.5); Red Blood Cell (RBC) Count 4.51 mill/uL (4.70-6.10); White Blood Cell (WBC) Count 11.8 thou/uL (4.8-10.8)
[2020-11-26 07:20] LABS: Actual Bicarbonate (HCO3a) 25.1 mEq/L (22-28); Base Excess (BEa) -0.7 mEq/L (-2.0 to +3.0); CO2 Tension 45.7 mmHg (35.0-45.0); Calcium, Ionized (arterial) 1.19 mmol/L (1.12-1.30); pH, Arterial 7.36 (7.35-7.45)
[2020-11-26 07:37] LABS: O2 Tension (PaO2), arterial 54.3 mmHg (> 60.0)
[2020-11-26 07:38] LABS: ALV-art Gradient 387.675 mmHg (0-20); Puncture Site RRA
[2020-11-26] MEDS: Sulfameth/Trimethoprim DS 800-160mg TAB PO SCH (08:17)
[2020-11-26] MEDS: Thiamine 100 MG TAB PO SCH (08:17)
[2020-11-26] MEDS: Ascorbic Acid 500 mg Chewable Tablet PO SCH ×2 (08:17→19:57)
[2020-11-26] MEDS: Famotidine 40 MG/5 ML Oral Suspension PER TUBE SCH (08:17)
[2020-11-26] MEDS: Zinc Sulfate 220 MG CAP PO SCH (08:17)
[2020-11-26] MEDS: Famotidine/PF 20 mg/2ml Vial SLOW IVP SCH ×2 (11:18→19:56)
[2020-11-26] MEDS: Lorazepam 2 MG/ML VIAL SLOW IVP PRN ×2 (12:12→19:56)
[2020-11-26] MEDS: ADMIXTURE FEE IVPB SCH (17:12)
[2020-11-26] MEDS: [UNRECOGNIZED DRUG - OTHER] IVPB SCH (17:12)
[2020-11-26] MEDS: METHYLPREDNISOLONE SOD SUCC IVPB SCH (17:12)
[2020-11-26] MEDS: Ivermectin 3 MG TAB PO SCH (17:12)
[2020-11-26] MEDS: Melatonin 3 MG TAB PO SCH (19:56)
[2020-11-26] MEDS: Cholecalciferol 1,000 UNITS (25 MCG) TAB PO SCH (19:57)
[2020-11-27] MEDS: Rocuronium Bromide 10 MG/ML (10ML VIAL) IVP PRN ×5 (01:35→23:14)
[2020-11-27] MEDS: Propofol 1,000 MG/100 ML VIAL IV PRN ×4 (03:09→20:46)
[2020-11-27 03:43] LABS: Band 2 % (5-11); Lymphocytes 2 % (21-51); MDiff Complete? YES; Mean Corpuscular HGB CONC 33.1 g/dL (32.0-36.0); Mean Corpuscular Hemoglobin 31.6 pg (27.0-31.0); Mean Corpuscular Volume 95.4 fL (78.0-98.0); Monocytes 5 % (0-10); Neutrophil 89 % (42-75); Platelet Count 54 thou/uL (130-400); Platelet Morphology Comment Appears Decreased; RBC Distribution Width 13.2 % (11.5-14.5); RBC Morphology Normal; Reactive Lymphocytes 2 % (0-10); Red Blood Cell (RBC) Count 4.43 mill/uL (4.70-6.10); White Blood Cell (WBC) Count 10.7 thou/uL (4.8-10.8)
[2020-11-27] MEDS: MEROPENEM 1 GM/50 ML 1 GM in Premix Bag 1 BAG IVPB SCH ×3 (04:13→20:00)
[2020-11-27 04:39] LABS: Albumin 2.4 g/dL (3.4-4.8)
[2020-11-27 04:40] LABS: Chloride 109 mmol/L (98-107); Potassium 4.5 mmol/L (3.5-5.1); Sodium 141 mmol/L (136-145)
[2020-11-27 04:41] LABS: Glucose 175 mg/dL (83-110)
[2020-11-27 04:42] LABS: Globulin 2.1 g/dL (2.4-3.5); Protein, Total 4.5 g/dL (5.8-8.1)
[2020-11-27 04:43] LABS: Anion Gap 7 mmol/L (10-20); Bilirubin, Total 0.6 mg/dL (0.2-1.2); Carbon Dioxide 30 mmol/L (23-31)
[2020-11-27 04:44] LABS: Alkaline Phosphatase 64 U/L (40-110)
[2020-11-27 04:45] LABS: Calc. Creatinine Clearance 80 mL/min (70-130)
[2020-11-27 04:46] LABS: BUN (Urea Nitrogen) 28 mg/dL (8.4-25.7)
[2020-11-27 04:47] LABS: ALT (SGPT) 29 U/L (8-55); AST (SGOT) 10 U/L (5-34)
[2020-11-27] MEDS: Lorazepam 2 MG/ML VIAL SLOW IVP PRN ×5 (06:40→23:14)
[2020-11-27] MEDS: Ascorbic Acid 500 mg Chewable Tablet PO SCH ×2 (07:50→20:22)
[2020-11-27] MEDS: Sulfameth/Trimethoprim DS 800-160mg TAB PO SCH (07:50)
[2020-11-27] MEDS: Famotidine/PF 20 mg/2ml Vial SLOW IVP SCH ×2 (07:50→20:22)
[2020-11-27] MEDS: Thiamine 100 MG TAB PO SCH (07:51)
[2020-11-27] MEDS: Zinc Sulfate 220 MG CAP PO SCH (07:51)
[2020-11-27] MEDS ORDERED: Fentanyl CADD 100 ML ONE (08:08)
[2020-11-27 08:36] LABS: Actual Bicarbonate (HCO3a) 24.7 mEq/L (22-28); Base Excess (BEa) -2.7 mEq/L (-2.0 to +3.0); CO2 Tension 53.2 mmHg (35.0-45.0); Calcium, Ionized (arterial) 1.21 mmol/L (1.12-1.30); Carboxyhemoglobin (COHb) 0.8 gm% (0.0-3.0); Hemoglobin (Hb) 15.3 g/dL (14.0-18.0); O2 Tension (PaO2), arterial 62.1 mmHg (> 60.0); pH, Arterial 7.29 (7.35-7.45)
[2020-11-27 08:54] LABS: Puncture Site RRA
[2020-11-27] MEDS: Ivermectin 3 MG TAB PO SCH (16:42)
[2020-11-27] MEDS: ADMIXTURE FEE IVPB SCH (16:42)
[2020-11-27] MEDS: METHYLPREDNISOLONE SOD SUCC IVPB SCH (16:42)
[2020-11-27] MEDS: [UNRECOGNIZED DRUG - OTHER] IVPB SCH (16:42)
[2020-11-27] MEDS: Melatonin 3 MG TAB PO SCH (20:22)
[2020-11-27] MEDS: Cholecalciferol 1,000 UNITS (25 MCG) TAB PO SCH (20:46)
[2020-11-28] MEDS: Propofol 1,000 MG/100 ML VIAL IV PRN ×4 (02:46→23:47)
[2020-11-28] MEDS: MEROPENEM 1 GM/50 ML 1 GM in Premix Bag 1 BAG IVPB SCH ×3 (03:28→19:37)
[2020-11-28] MEDS: Lorazepam 2 MG/ML VIAL SLOW IVP PRN ×2 (04:06→07:42)
[2020-11-28] MEDS: Rocuronium Bromide 10 MG/ML (10ML VIAL) IVP PRN ×4 (04:06→19:40)
[2020-11-28] MEDS ORDERED: Fentanyl CADD 100 ML ONE (04:27)
[2020-11-28 04:32] LABS: #Lymphocytes 0.6 thou/uL (1.20-3.40); #Monocytes 0.2 thou/uL (0.11-0.59); #Neutrophils 10.7 thou/uL (1.40-6.50); %Eosinophils 0.1 % (0.0-10.0); %Lymphocytes 4.9 % (21.0-51.0); %Monocytes 1.3 % (0.0-10.0); %Neutrophils 93.7 % (42.0-75.0); Hemoglobin 14.5 g/dL (14.0-18.0); Mean Corpuscular HGB CONC 32.4 g/dL (32.0-36.0); Mean Corpuscular Hemoglobin 30.8 pg (27.0-31.0); Mean Corpuscular Volume 95.1 fL (78.0-98.0); Mean Platelet Volume 10.6 fL (7.4-10.4); Platelet Count 55 thou/uL (130-400); RBC Distribution Width 13.4 % (11.5-14.5); Red Blood Cell (RBC) Count 4.69 mill/uL (4.70-6.10); White Blood Cell (WBC) Count 11.4 thou/uL (4.8-10.8)
[2020-11-28] MEDS: Fentanyl CADD 100 ML IV SCH (04:42)
[2020-11-28 04:52] LABS: ALT (SGPT) 24 U/L (8-55); AST (SGOT) 17 U/L (5-34); Albumin 2.3 g/dL (3.4-4.8); Alkaline Phosphatase 73 U/L (40-110); Anion Gap 9 mmol/L (10-20); BUN (Urea Nitrogen) 28 mg/dL (8.4-25.7); Bilirubin, Total 0.5 mg/dL (0.2-1.2); Calc. Creatinine Clearance 85 mL/min (70-130); Calcium 8.1 mg/dL (7.8-10.44); Carbon Dioxide 29 mmol/L (23-31); Chloride 109 mmol/L (98-107); Globulin 2.7 g/dL (2.4-3.5); Glucose 181 mg/dL (83-110); Potassium 5.1 mmol/L (3.5-5.1); Sodium 142 mmol/L (136-145)
[2020-11-28 07:40] LABS: Actual Bicarbonate (HCO3a) 27.8 mEq/L (22-28); Base Excess (BEa) 0.4 mEq/L (-2.0 to +3.0); CO2 Tension 55.8 mmHg (35.0-45.0); Carboxyhemoglobin (COHb) 1.1 gm% (0.0-3.0); Hemoglobin (Hb) 15.8 g/dL (14.0-18.0); Potassium - ABG Lab 4.75 mmol/L (3.70-5.30); pH, Arterial 7.32 (7.35-7.45)
[2020-11-28 07:42] LABS: O2 Tension (PaO2), arterial 58.5 mmHg (> 60.0); Puncture Site RRA
[2020-11-28] MEDS: Ascorbic Acid 500 mg Chewable Tablet PO SCH ×2 (07:42→19:38)
[2020-11-28] MEDS: Zinc Sulfate 220 MG CAP PO SCH (07:42)
[2020-11-28] MEDS: Famotidine/PF 20 mg/2ml Vial SLOW IVP SCH ×2 (07:42→19:38)
[2020-11-28] MEDS: Thiamine 100 MG TAB PO SCH (07:42)
[2020-11-28] MEDS: [UNRECOGNIZED DRUG - OTHER] IVPB SCH (16:10)
[2020-11-28] MEDS: ADMIXTURE FEE IVPB SCH (16:10)
[2020-11-28] MEDS: Ivermectin 3 MG TAB PO SCH (16:10)
[2020-11-28] MEDS: METHYLPREDNISOLONE SOD SUCC IVPB SCH (16:10)
[2020-11-28] MEDS: Melatonin 3 MG TAB PO SCH (19:37)
[2020-11-28] MEDS: Cholecalciferol 1,000 UNITS (25 MCG) TAB PO SCH (19:37)
[2020-11-29] MEDS ORDERED: Fentanyl CADD 100 ML ONE ×2 (00:42→19:21)
[2020-11-29] MEDS: Fentanyl CADD 100 ML IV SCH ×2 (01:20→19:36)
[2020-11-29] MEDS: MEROPENEM 1 GM/50 ML 1 GM in Premix Bag 1 BAG IVPB SCH ×3 (04:20→19:28)
[2020-11-29 04:36] LABS: #Lymphocytes 0.6 thou/uL (1.20-3.40); #Monocytes 0.3 thou/uL (0.11-0.59); %Basophils 0.2 % (0.0-1.0); %Eosinophils 0.2 % (0.0-10.0); %Lymphocytes 4.9 % (21.0-51.0); %Monocytes 2.1 % (0.0-10.0); %Neutrophils 92.6 % (42.0-75.0); Hemoglobin 14.7 g/dL (14.0-18.0); Mean Corpuscular HGB CONC 33.4 g/dL (32.0-36.0); Mean Corpuscular Hemoglobin 31.9 pg (27.0-31.0); Mean Corpuscular Volume 95.6 fL (78.0-98.0); Platelet Count 49 thou/uL (130-400); RBC Distribution Width 13.3 % (11.5-14.5); White Blood Cell (WBC) Count 11.9 thou/uL (4.8-10.8)
[2020-11-29 04:59] LABS: ALT (SGPT) 25 U/L (8-55); AST (SGOT) 11 U/L (5-34); Albumin 2.5 g/dL (3.4-4.8); Alkaline Phosphatase 76 U/L (40-110); Anion Gap 10 mmol/L (10-20); BUN (Urea Nitrogen) 28 mg/dL (8.4-25.7); Bilirubin, Total 0.7 mg/dL (0.2-1.2); Calc. Creatinine Clearance 91 mL/min (70-130); Carbon Dioxide 31 mmol/L (23-31); Chloride 107 mmol/L (98-107); Globulin 2.1 g/dL (2.4-3.5); Glucose 167 mg/dL (83-110); Potassium 5.2 mmol/L (3.5-5.1); Protein, Total 4.6 g/dL (5.8-8.1); Sodium 143 mmol/L (136-145)
[2020-11-29] MEDS: Propofol 1,000 MG/100 ML VIAL IV PRN ×4 (05:27→20:15)
[2020-11-29 07:54] LABS: Actual Bicarbonate (HCO3a) 33.5 mEq/L (22-28); CO2 Tension 49.6 mmHg (35.0-45.0); Calcium, Ionized (arterial) 1.15 mmol/L (1.12-1.30); Carboxyhemoglobin (COHb) 0.8 gm% (0.0-3.0); Hemoglobin (Hb) 14.5 g/dL (14.0-18.0); Potassium - ABG Lab 5.15 mmol/L (3.70-5.30); pH, Arterial 7.45 (7.35-7.45)
[2020-11-29 08:00] LABS: O2 Tension (PaO2), arterial 46.7 mmHg (> 60.0); Puncture Site RRA
[2020-11-29] MEDS: Famotidine 20 MG TAB PO SCH ×2 (09:44→19:30)
[2020-11-29] MEDS: Zinc Sulfate 220 MG CAP PO SCH (09:45)
[2020-11-29] MEDS: Ascorbic Acid 500 mg Chewable Tablet PO SCH ×2 (09:45→19:30)
[2020-11-29] MEDS: Thiamine 100 MG TAB PO SCH (09:45)
[2020-11-29] MEDS: METHYLPREDNISOLONE SOD SUCC IVPB SCH ×2 (10:00→19:30)
[2020-11-29] MEDS: [UNRECOGNIZED DRUG - OTHER] IVPB SCH ×2 (10:00→19:30)
[2020-11-29] MEDS: ADMIXTURE FEE IVPB SCH ×2 (10:00→19:30)
[2020-11-29] MEDS: Lorazepam 2 MG/ML VIAL SLOW IVP PRN ×2 (11:03→15:42)
[2020-11-29] MEDS: Rocuronium Bromide 10 MG/ML (10ML VIAL) IVP PRN ×2 (11:29→21:17)
[2020-11-29 13:34] LABS: Anion Gap 12 mmol/L (10-20); BUN (Urea Nitrogen) 30 mg/dL (8.4-25.7); Calc. Creatinine Clearance 94 mL/min (70-130); Calcium 7.7 mg/dL (7.8-10.44); Carbon Dioxide 25 mmol/L (23-31); Chloride 110 mmol/L (98-107); Glucose 148 mg/dL (83-110); Potassium 5.8 mmol/L (3.5-5.1); Sodium 141 mmol/L (136-145)
[2020-11-29 13:59] LABS: #Lymphocytes 0.3 thou/uL (1.20-3.40); #Monocytes 0.5 thou/uL (0.11-0.59); #Neutrophils 14.4 thou/uL (1.40-6.50); %Basophils 0.2 % (0.0-1.0); %Eosinophils 0.2 % (0.0-10.0); %Lymphocytes 1.9 % (21.0-51.0); %Monocytes 3.4 % (0.0-10.0); %Neutrophils 94.2 % (42.0-75.0); Hemoglobin 15.2 g/dL (14.0-18.0); Mean Corpuscular HGB CONC 32.4 g/dL (32.0-36.0); Mean Corpuscular Hemoglobin 30.8 pg (27.0-31.0); Mean Platelet Volume 10.8 fL (7.4-10.4); Platelet Count 48 thou/uL (130-400); RBC Distribution Width 13.4 % (11.5-14.5); Red Blood Cell (RBC) Count 4.95 mill/uL (4.70-6.10); White Blood Cell (WBC) Count 15.3 thou/uL (4.8-10.8)
[2020-11-29] MEDS: Ivermectin 3 MG TAB PO SCH (18:00)
[2020-11-29] MEDS: Melatonin 3 MG TAB PO SCH (19:29)
[2020-11-29] MEDS: Cholecalciferol 1,000 UNITS (25 MCG) TAB PO SCH (19:30)
[2020-11-30] MEDS: Propofol 1,000 MG/100 ML VIAL IV PRN ×6 (01:38→21:59)
[2020-11-30] MEDS: MEROPENEM 1 GM/50 ML 1 GM in Premix Bag 1 BAG IVPB SCH ×3 (03:08→20:10)
[2020-11-30 04:40] LABS: Hemoglobin 14.1 g/dL (14.0-18.0); Mean Corpuscular HGB CONC 32.7 g/dL (32.0-36.0); Mean Corpuscular Hemoglobin 31.6 pg (27.0-31.0); Mean Corpuscular Volume 96.7 fL (78.0-98.0); Mean Platelet Volume 10.9 fL (7.4-10.4); Platelet Count 43 thou/uL (130-400); RBC Distribution Width 13.3 % (11.5-14.5); Red Blood Cell (RBC) Count 4.46 mill/uL (4.70-6.10); White Blood Cell (WBC) Count 11.7 thou/uL (4.8-10.8)
[2020-11-30 04:55] LABS: ALT (SGPT) 25 U/L (8-55); AST (SGOT) 11 U/L (5-34); Albumin 2.4 g/dL (3.4-4.8); Alkaline Phosphatase 75 U/L (40-110); Anion Gap 8 mmol/L (10-20); BUN (Urea Nitrogen) 32 mg/dL (8.4-25.7); Bilirubin, Total 0.7 mg/dL (0.2-1.2); Calc. Creatinine Clearance 89 mL/min (70-130); Calcium 8.2 mg/dL (7.8-10.44); Carbon Dioxide 35 mmol/L (23-31); Chloride 106 mmol/L (98-107); Globulin 2.3 g/dL (2.4-3.5); Glucose 170 mg/dL (83-110); Potassium 5.6 mmol/L (3.5-5.1); Protein, Total 4.7 g/dL (5.8-8.1); Sodium 143 mmol/L (136-145)
[2020-11-30 05:00] LABS: Band 8 % (5-11); Lymphocytes 2 % (21-51); MDiff Complete? YES; Monocytes 1 % (0-10); Neutrophil 87 % (42-75); Platelet Morphology Comment Appears Decreased; Reactive Lymphocytes 2 % (0-10)
[2020-11-30] MEDS: Metoclopramide HCl 10 MG/2 ML VIAL IVP PRN (05:02)
[2020-11-30] MEDS: Senokot S 8.6-50 MG TAB PO PRN (05:11)
[2020-11-30 07:42] LABS: Actual Bicarbonate (HCO3a) 33.3 mEq/L (22-28); CO2 Tension 59.5 mmHg (35.0-45.0); Calcium, Ionized (arterial) 1.19 mmol/L (1.12-1.30); Carboxyhemoglobin (COHb) 1.1 gm% (0.0-3.0); Hemoglobin (Hb) 14.6 g/dL (14.0-18.0); Potassium - ABG Lab 5.51 mmol/L (3.70-5.30); pH, Arterial 7.37 (7.35-7.45)
[2020-11-30 07:48] LABS: ALV-art Gradient 371.425 mmHg (0-20); O2 Tension (PaO2), arterial 53.3 mmHg (> 60.0); Puncture Site RRA
[2020-11-30 09:01] LABS: Anion Gap 12 mmol/L (10-20); BUN (Urea Nitrogen) 34 mg/dL (8.4-25.7); Calc. Creatinine Clearance 95 mL/min (70-130); Calcium 7.8 mg/dL (7.8-10.44); Carbon Dioxide 31 mmol/L (23-31); Chloride 107 mmol/L (98-107); Glucose 167 mg/dL (83-110); Sodium 144 mmol/L (136-145)
[2020-11-30] MEDS: Zinc Sulfate 220 MG CAP PO SCH (09:16)
[2020-11-30] MEDS: Famotidine 20 MG TAB PO SCH ×2 (09:16→20:45)
[2020-11-30] MEDS: Thiamine 100 MG TAB PO SCH (09:16)
[2020-11-30] MEDS: Ascorbic Acid 500 mg Chewable Tablet PO SCH ×2 (09:16→20:46)
[2020-11-30 10:13] VITALS: BMI 23.9
[2020-11-30] MEDS ORDERED: Fentanyl CADD 100 ML ONE (14:45)
[2020-11-30] MEDS: Ivermectin 3 MG TAB PO SCH (17:03)
[2020-11-30] MEDS: ADMIXTURE FEE IVPB SCH (19:58)
[2020-11-30] MEDS: METHYLPREDNISOLONE SOD SUCC IVPB SCH (19:58)
[2020-11-30] MEDS: [UNRECOGNIZED DRUG - OTHER] IVPB SCH (19:58)
[2020-11-30] MEDS: Cholecalciferol 1,000 UNITS (25 MCG) TAB PO SCH (20:46)
[2020-11-30] MEDS: Melatonin 3 MG TAB PO SCH (20:46)
[2020-11-30] MEDS: Rocuronium Bromide 10 MG/ML (10ML VIAL) IVP PRN (23:15)
[2020-12-01] MEDS: Propofol 1,000 MG/100 ML VIAL IV PRN ×6 (01:52→22:10)
[2020-12-01 04:30] LABS: Hemoglobin 14.2 g/dL (14.0-18.0); Mean Corpuscular HGB CONC 31.8 g/dL (32.0-36.0); Mean Corpuscular Hemoglobin 30.6 pg (27.0-31.0); Mean Corpuscular Volume 96.3 fL (78.0-98.0); Mean Platelet Volume 10.5 fL (7.4-10.4); Platelet Count 44 thou/uL (130-400); RBC Distribution Width 13.3 % (11.5-14.5); Red Blood Cell (RBC) Count 4.65 mill/uL (4.70-6.10); White Blood Cell (WBC) Count 11.4 thou/uL (4.8-10.8)
[2020-12-01] MEDS: MEROPENEM 1 GM/50 ML 1 GM in Premix Bag 1 BAG IVPB SCH ×3 (04:33→20:06)
[2020-12-01 04:46] LABS: ALT (SGPT) 25 U/L (8-55); AST (SGOT) 13 U/L (5-34); Albumin 2.6 g/dL (3.4-4.8); Alkaline Phosphatase 85 U/L (40-110); Anion Gap 10 mmol/L (10-20); BUN (Urea Nitrogen) 34 mg/dL (8.4-25.7); Bilirubin, Total 0.8 mg/dL (0.2-1.2); Calc. Creatinine Clearance 90 mL/min (70-130); Calcium 8.4 mg/dL (7.8-10.44); Carbon Dioxide 35 mmol/L (23-31); Chloride 104 mmol/L (98-107); Globulin 2.4 g/dL (2.4-3.5); Glucose 183 mg/dL (83-110); Potassium 5.5 mmol/L (3.5-5.1); Sodium 143 mmol/L (136-145)
[2020-12-01 06:07] LABS: Band 15 % (5-11); Lymphocytes 2 % (21-51); MDiff Complete? YES; Monocytes 4 % (0-10); Neutrophil 78 % (42-75); Platelet Morphology Comment Appears Decreased; Reactive Lymphocytes 1 % (0-10)
[2020-12-01 07:53] LABS: Actual Bicarbonate (HCO3a) 35.2 mEq/L (22-28); Base Excess (BEa) 9.4 mEq/L (-2.0 to +3.0); Calcium, Ionized (arterial) 1.13 mmol/L (1.12-1.30); Carboxyhemoglobin (COHb) 1.3 gm% (0.0-3.0); Hemoglobin (Hb) 14.5 g/dL (14.0-18.0); Potassium - ABG Lab 5.25 mmol/L (3.70-5.30); pH, Arterial 7.45 (7.35-7.45)
[2020-12-01 08:17] LABS: O2 Tension (PaO2), arterial 50.2 mmHg (> 60.0); Puncture Site RRA
[2020-12-01] MEDS: Zinc Sulfate 220 MG CAP PO SCH (09:55)
[2020-12-01] MEDS: Thiamine 100 MG TAB PO SCH (09:55)
[2020-12-01] MEDS: Ascorbic Acid 500 mg Chewable Tablet PO SCH ×2 (09:55→20:06)
[2020-12-01] MEDS: Famotidine 20 MG TAB PO SCH ×2 (09:55→20:06)
[2020-12-01] MEDS ORDERED: Fentanyl CADD 100 ML ONE (10:12)
[2020-12-01] MEDS: Fluconazole In NaCl,Iso-Osm 400 MG in Premix Bag 1 BAG IVPB SCH (14:05)
[2020-12-01] MEDS: [UNRECOGNIZED DRUG - OTHER] IVPB SCH (19:00)
[2020-12-01] MEDS: METHYLPREDNISOLONE SOD SUCC IVPB SCH (19:00)
[2020-12-01] MEDS: ADMIXTURE FEE IVPB SCH (19:00)
[2020-12-01] MEDS: Cholecalciferol 1,000 UNITS (25 MCG) TAB PO SCH (20:06)
[2020-12-01] MEDS: Melatonin 3 MG TAB PO SCH (20:06)
[2020-12-01] MEDS: Enoxaparin Sodium 40 MG/0.4 ML SYRINGE SC SCH (20:07)
[2020-12-01] MEDS ORDERED: Enoxaparin Sodium 100 MG/ML SYRINGE SC SCH (21:00)
[2020-12-02] MEDS: Propofol 1,000 MG/100 ML VIAL IV PRN ×5 (02:14→22:15)
[2020-12-02] MEDS: MEROPENEM 1 GM/50 ML 1 GM in Premix Bag 1 BAG IVPB SCH (03:58)
[2020-12-02] MEDS: Senokot S 8.6-50 MG TAB PO PRN (03:59)
[2020-12-02 04:47] LABS: ALT (SGPT) 27 U/L (8-55); AST (SGOT) 16 U/L (5-34); Albumin 2.5 g/dL (3.4-4.8); Alkaline Phosphatase 90 U/L (40-110); Anion Gap 9 mmol/L (10-20); BUN (Urea Nitrogen) 36 mg/dL (8.4-25.7); Bilirubin, Total 0.7 mg/dL (0.2-1.2); Calc. Creatinine Clearance 93 mL/min (70-130); Calcium 8.6 mg/dL (7.8-10.44); Carbon Dioxide 35 mmol/L (23-31); Chloride 103 mmol/L (98-107); Globulin 2.4 g/dL (2.4-3.5); Glucose 167 mg/dL (83-110); Potassium 5.4 mmol/L (3.5-5.1); Protein, Total 4.9 g/dL (5.8-8.1); Sodium 142 mmol/L (136-145)
[2020-12-02 04:48] LABS: Band 17 % (5-11); Hemoglobin 14.2 g/dL (14.0-18.0); Lymphocytes 5 % (21-51); MDiff Complete? YES; Mean Corpuscular HGB CONC 31.5 g/dL (32.0-36.0); Mean Corpuscular Hemoglobin 30.7 pg (27.0-31.0); Mean Corpuscular Volume 97.6 fL (78.0-98.0); Mean Platelet Volume 10.9 fL (7.4-10.4); Monocytes 2 % (0-10); Neutrophil 76 % (42-75); Platelet Count 44 thou/uL (130-400); Platelet Morphology Comment Appears Decreased; RBC Distribution Width 13.5 % (11.5-14.5); Red Blood Cell (RBC) Count 4.63 mill/uL (4.70-6.10); White Blood Cell (WBC) Count 10.9 thou/uL (4.8-10.8)
[2020-12-02] MEDS ORDERED: Fentanyl CADD 100 ML ONE (06:05)
[2020-12-02] MEDS: Fentanyl CADD 100 ML IV SCH (06:18)
[2020-12-02 07:41] LABS: Base Excess (BEa) 8.4 mEq/L (-2.0 to +3.0); Calcium, Ionized (arterial) 1.23 mmol/L (1.12-1.30); Carboxyhemoglobin (COHb) 1.2 gm% (0.0-3.0); Hemoglobin (Hb) 17.4 g/dL (14.0-18.0); pH, Arterial 7.37 (7.35-7.45)
[2020-12-02 08:37] LABS: O2 Tension (PaO2), arterial 51.4 mmHg (> 60.0); Puncture Site RRA
[2020-12-02] MEDS: Zinc Sulfate 220 MG CAP PO SCH (09:15)
[2020-12-02] MEDS: Ascorbic Acid 500 mg Chewable Tablet PO SCH ×2 (09:15→20:49)
[2020-12-02] MEDS: Thiamine 100 MG TAB PO SCH (09:15)
[2020-12-02] MEDS: Famotidine 20 MG TAB PO SCH ×2 (09:16→20:49)
[2020-12-02] MEDS: Enoxaparin Sodium 40 MG/0.4 ML SYRINGE SC SCH ×2 (09:16→20:50)
[2020-12-02] MEDS: acetaZOLAMIDE Sodium 500 mg Vial IVP SCH (11:36)
[2020-12-02] MEDS: Furosemide 40 MG/4 ML VIAL SLOW IVP SCH (14:07)
[2020-12-02] MEDS: Fluconazole In NaCl,Iso-Osm 400 MG in Premix Bag 1 BAG IVPB SCH (14:44)
[2020-12-02] MEDS: ADMIXTURE FEE IVPB SCH (18:26)
[2020-12-02] MEDS: METHYLPREDNISOLONE SOD SUCC IVPB SCH (18:26)
[2020-12-02] MEDS: [UNRECOGNIZED DRUG - OTHER] IVPB SCH (18:26)
[2020-12-02] MEDS: Melatonin 3 MG TAB PO SCH (20:48)
[2020-12-02] MEDS: Cholecalciferol 1,000 UNITS (25 MCG) TAB PO SCH (20:48)
[2020-12-02] MEDS: Metoclopramide HCl 10 MG/2 ML VIAL IVP PRN (20:51)
[2020-12-03] MEDS ORDERED: Fentanyl CADD 100 ML ONE (02:10)
[2020-12-03] MEDS: Fentanyl CADD 100 ML IV SCH (02:14)
[2020-12-03] MEDS: Propofol 1,000 MG/100 ML VIAL IV PRN ×2 (03:32→08:35)
[2020-12-03] MEDS: Furosemide 40 MG/4 ML VIAL SLOW IVP SCH (06:07)
[2020-12-03 06:43] LABS: Hemoglobin 14.4 g/dL (14.0-18.0); Mean Corpuscular HGB CONC 33.1 g/dL (32.0-36.0); Mean Corpuscular Hemoglobin 31.8 pg (27.0-31.0); Mean Corpuscular Volume 96.2 fL (78.0-98.0); Mean Platelet Volume 11.7 fL (7.4-10.4); Platelet Count 45 thou/uL (130-400); RBC Distribution Width 13.4 % (11.5-14.5); Red Blood Cell (RBC) Count 4.53 mill/uL (4.70-6.10); White Blood Cell (WBC) Count 9.8 thou/uL (4.8-10.8)
[2020-12-03 06:59] LABS: ALT (SGPT) 31 U/L (8-55); AST (SGOT) 20 U/L (5-34); Albumin 2.4 g/dL (3.4-4.8); Alkaline Phosphatase 97 U/L (40-110); Anion Gap 13 mmol/L (10-20); BUN (Urea Nitrogen) 48 mg/dL (8.4-25.7); Band 12 % (5-11); Bilirubin, Total 0.7 mg/dL (0.2-1.2); Calc. Creatinine Clearance 90 mL/min (70-130); Calcium 8.4 mg/dL (7.8-10.44); Carbon Dioxide 31 mmol/L (23-31); Chloride 105 mmol/L (98-107); Globulin 2.3 g/dL (2.4-3.5); Glucose 186 mg/dL (83-110); Lymphocytes 7 % (21-51); MDiff Complete? YES; Monocytes 3 % (0-10); Neutrophil 78 % (42-75); Platelet Morphology Comment Appears Decreased; Potassium 4.5 mmol/L (3.5-5.1); Protein, Total 4.7 g/dL (5.8-8.1); Sodium 144 mmol/L (136-145)
[2020-12-03] MEDS: Thiamine 100 MG TAB PO SCH (08:36)
[2020-12-03] MEDS: Ascorbic Acid 500 mg Chewable Tablet PO SCH (08:36)
[2020-12-03] MEDS: Zinc Sulfate 220 MG CAP PO SCH (08:36)
[2020-12-03] MEDS: Enoxaparin Sodium 40 MG/0.4 ML SYRINGE SC SCH (08:37)
[2020-12-03] MEDS: Famotidine 20 MG TAB PO SCH (08:37)
[2020-12-03] MEDS ORDERED: Sterile Water 10 ML ONE (12:22)
[2020-12-03] MEDS: acetaZOLAMIDE Sodium 500 mg Vial IVP SCH ×2 (12:23→12:34)
[2020-12-03 13:25] VITALS: TEMP 97.9
[2020-12-03] MEDS ORDERED: Lorazepam 2 MG/ML VIAL SLOW IVP PRN (14:02)
[2020-12-03] MEDS ORDERED: Morphine 4 MG/ML VIAL SLOW IVP SCH (14:15)
[2020-12-03 14:31] VITALS: BP 111/66
[2020-12-03] MEDS: Lorazepam 2 MG/ML VIAL SLOW IVP PRN (15:03)
== END 2020-12-03 15:47 | disposition hospice, inpatient (51) | DRG 870 ==
LOC: ERS 21:23 → 2SW 23:53 → IMCU/EMU 11-16 17:50 → CCU 11-25 09:41
PROVIDERS: ADMIT Internal Medicine; ATTEND Student in an Organized Health Care Education/Training Program
PROC: 8E0ZXY6 Isolation (ICD-10-PCS; 2020-11-14)
PROC: XW033E5 Introduction of Remdesivir Anti-infective into Peripheral Vein, Percutaneous Approach, New Technology Group 5 (ICD-10-PCS; 2020-11-15)
PROC: 0BH18EZ Insertion of Endotracheal Airway into Trachea, Via Natural or Artificial Opening Endoscopic (ICD-10-PCS; principal; 2020-11-25)
PROC: 5A1955Z Respiratory Ventilation, Greater than 96 Consecutive Hours (ICD-10-PCS; 2020-11-25)
PROC: 0W9930Z Drainage of Right Pleural Cavity with Drainage Device, Percutaneous Approach (ICD-10-PCS; 2020-11-25)
PROC: 0W9930Z Drainage of Right Pleural Cavity with Drainage Device, Percutaneous Approach (ICD-10-PCS; 2020-11-25)
PROC: 0DH67UZ Insertion of Feeding Device into Stomach, Via Natural or Artificial Opening (ICD-10-PCS; 2020-11-26)
DX: A41.89 Other specified sepsis (principal); U07.1 COVID-19; J12.82 Pneumonia due to coronavirus disease 2019; J96.01 Acute respiratory failure with hypoxia; C85.90 Non-Hodgkin lymphoma, unspecified, unspecified site; R04.2 Hemoptysis; J93.83 Other pneumothorax; K52.1 Toxic gastroenteritis and colitis; J93.82 Other air leak; Z66 Do not resuscitate; Z51.5 Encounter for palliative care; M19.90 Unspecified osteoarthritis, unspecified site; D69.59 Other secondary thrombocytopenia; E87.5 Hyperkalemia; J98.2 Interstitial emphysema; R00.0 Tachycardia, unspecified; N28.9 Disorder of kidney and ureter, unspecified; T50.4X5A Adverse effect of drugs affecting uric acid metabolism, initial encounter; B37.9 Candidiasis, unspecified; Z78.1 Physical restraint status; Z92.3 Personal history of irradiation; Z92.21 Personal history of antineoplastic chemotherapy; Z87.891 Personal history of nicotine dependence; Z79.899 Other long term (current) drug therapy
CPT/HCPCS: 0240U; 36415; 36416; 36600; 71045; 71275; 80048; 80053; 82550; 82553; 82728; 82805; 83605; 83690; 83735; 83880; 84484; 85025; 85049; 85300; 85362; 85379; 85384; 85610; 85730; 86140; 87040; 87070; 87086; 87205; 93005; 93010; 93970; 94002; 94003; 94660; 94760; 96365; 96367; 96372; J0456; J0696; J1100; J1120; J1450; J1650; J1940; J1956; J2001; J2060; J2185; J2270; J2405; J2543; J2704; J2765; J2930; J3010; J3475; J3480; J3490; J7050; Q9967; S0028

== ENCOUNTER 2020-12-03 15:53 | Inpatient (IN) | payer MEDICARE ==
[2020-12-03] MEDS ORDERED: Morphine 4 MG/ML VIAL ONE (16:07)
[2020-12-03] MEDS ORDERED: Morphine 4 MG/ML VIAL SLOW IVP PRN (16:22)
[2020-12-03] MEDS ORDERED: diphenhydrAMINE 50 MG/ML VIAL IVP PRN (16:30)
[2020-12-03] MEDS: Lorazepam 2 MG/ML VIAL SLOW IVP PRN ×2 (16:32→17:06)
== END 2020-12-03 17:24 | disposition expired | DRG 951 ==
LOC: CCU 15:53
PROVIDERS: ADMIT Internal Medicine; ATTEND Internal Medicine
DX: Z51.5 Encounter for palliative care (principal)
CPT/HCPCS: J1200; J2060; J2270